=== PATIENT | female | born 1990 | race Caucasian/White ===

== ENCOUNTER 2020-04-21 16:29 | Outpatient (REF) | payer BC, SELFPAY | END 2020-04-21 16:30 | disposition home or self-care (01) | LOC: HO.LAB 16:29 | PROVIDERS: Visit Provider Internal Medicine | DX: Z20.828 Contact with and (suspected) exposure to other viral communicable diseases (principal) | CPT/HCPCS: C9803; U0003 ==

== ENCOUNTER 2021-09-26 18:10 | Emergency (ER) | payer BC, SELFPAY ==
--- NOTE | ~2021-09-26 | XR_ITS ---
EXAMINATION: XR CHEST CLINICAL INFORMATION: Shortness of breath COMPARISON: None TECHNIQUE: 2 views of the chest were obtained. FINDINGS: No significant abnormality is noted involving the heart, lungs, mediastinum, bony thorax or soft tissues. XR/XR chest 2V IMPRESSION: Unremarkable examination.
--- NOTE | ~2021-09-26 | CT_ITS ---
EXAMINATION: CT ANGIOGRAM OF THE CHEST WITH AND WITHOUT CONTRAST (CT PULMONARY ANGIOGRAM FOR PE) CLINICAL INFORMATION: Reason for Exam SOB, chest pain, elevated dimer COMPARISON: None TECHNIQUE: Prior to contrast administration, noncontrast localization images were obtained. Subsequently, multidetector volumetric imaging was performed from the thoracic inlet to below the diaphragms following the administration of 65 mL Omnipaque 350 intravenous contrast. No contrast reaction reported Sagittal, coronal, and MIP oblique sagittal reformatted images were obtained on the CT workstation, uploaded to PACS, and reviewed. This CT examination was performed using dose optimization techniques as appropriate, variously including the following: *Automated exposure control *Adjustment of mA and/or kV according to patient size (this includes techniques or standardized protocols for targeted exams where dose is matched to indication/reason for exam; i.e. extremities or head) *Use of iterative reconstruction technique Total exam dose-length product 314 mGy-cm FINDINGS: QUALITY OF STUDY/CONTRAST BOLUS: Satisfactory. PULMONARY ARTERIES: No central or segmental pulmonary emboli. THORACIC AORTA: No aneurysm or dissection. LUNG: No focal consolidation, nodules or masses. The central airways are patent. PLEURA: No pleural effusion or pneumothorax. MEDIASTINUM: Normal heart size. No pericardial effusion. No hilar or mediastinal lymphadenopathy. No evidence of septal bowing or right heart strain. CHEST WALL/AXILLA: No axillary or internal mammary lymphadenopathy. OSSEOUS STRUCTURES: No acute or suspicious osseous abnormality. UPPER ABDOMEN: Unremarkable. No reflux of contrast into the hepatic veins to suggest elevated right heart pressures. CT/CT angio chest PE protocol IMPRESSION: No pulmonary embolism or other acute intrathoracic abnormality. VTE: negative
[2021-09-26 18:17] VITALS: BP 125/86; PULSE 86; RESP 18; TEMP 36.6; O2SAT 98; BMI 36.6
--- NOTE | 2021-09-26 18:17 | ECG_ITS ---
Test Reason : chest pain Blood Pressure : / mmHG Vent. Rate : 085 BPM Atrial Rate : 085 BPM P-R Int : 124 ms QRS Dur : 084 ms QT Int : 346 ms P-R-T Axes : 032 044 026 degrees QTc Int : 411 ms Normal sinus rhythm with sinus arrhythmia Normal ECG No previous ECGs available Referred By: Generic ED Physician Electronically Signed By:RUDY VALERA
[2021-09-26 18:37] LABS: MANUAL DIFF FLAG NO
[2021-09-26 18:41] LABS: Basophils Percent Auto 0.7 % (0-2); Eosinophils Absolute Auto 0.2 X10*3/uL (0.0-0.4); Eosinophils Percent Auto 3.2 % (0-4); Hematocrit 40.3 % (37.0-47.0); Hemoglobin 13.4 g/dl (12.0-16.0); Imm Gran Abs Auto 0.01 X10*3/uL (0.00-0.03); Imm Gran Pct Auto 0.2 % (0.0-0.4); Lymphocytes Absolute Auto 2.1 X10*3/uL (1.2-4.9); Lymphocytes Percent Auto 35.4 % (20-40); Mean Corpuscular HGB Conc 33.3 g/dl (31.0-35.0); Mean Corpuscular Hemoglobin 28.7 pg (27.0-33.0); Mean Corpuscular Volume 86.3 fL (80.0-98.0); Mean Platelet Volume 10.7 fL (9.4-12.3); Monocytes Absolute Auto 0.6 X10*3/uL (0.1-1.2); Monocytes Percent Auto 9.3 % (2-11); Neutrophils Percent Auto 51.2 % (45-73); Platelet Count 281 X10*3/uL (160-400); Red Blood Count 4.67 X10*6/uL (4.20-5.50); Red Cell Distribution Width 13.5 % (11.0-16.0); White Blood Count 5.9 X10*3/uL (4.8-10.8)
[2021-09-26 18:53] LABS: Alanine Aminotransferase 16 U/L (0-31); Albumin Level 4.3 g/dL (3.5-5.0); Alkaline Phosphatase 69 U/L (39-117); Anion Gap 13 (12-20); Aspartate Amino Transferase 18 U/L (5-31); Bilirubin Total 0.4 mg/dL (0.0-1.0); Blood Urea Nitrogen 8 mg/dL (9-16); COVID-19 Test Negative (Negative); Calcium 9.2 mg/dL (8.4-10.2); Carbon Dioxide 23 mmol/L (22-29); Chloride 107 mmol/L (96-108); Creatinine Clr Calc Pharmacy 130.1; Estimated Glomerular Filt Rate > 60; Glucose Random 104 mg/dL (60-115); IDNOW Serial# 16C4AD1C; Influenza A Negative (Negative); Influenza B2 Negative (Negative); Potassium 4.1 mmol/L (3.3-5.1); Sodium 139 mmol/L (135-145); Total Protein 7.2 g/dL (6.5-8.0)
[2021-09-26 18:58] LABS: Troponin-I High Sensitivity < 3.5 ng/L (<3.5-17.0)
--- NOTE | 2021-09-26 19:34 | ED_ITS ---
HPI - Chest Pain General Chief Complaint: Chest Pain Stated Complaint: SOB/chest pains/heart palpitaions Time Seen by Provider: 09/26/21 19:32 Source: patient Mode of arrival: ambulatory Limitations: no limitations History of Present Illness HPI narrative: Patient is a 31 year old female presenting to the emergency department today with intermittent chest pain, shortness of breath, and dizziness. Patient states that since Saturday, 3 days ago, she has had intermittent chest pain, shortness of breath, and dizziness. Patient states that her chest pain is worse when she takes a deep breath and is primarily on the right side but at times, feels like it settles in the center of her chest. Patient denies any lightheadedness, abdominal pain, nausea, vomiting, fever, chills, blurry vision, double vision, loss of vision, back pain, night sweats, pain with urination, increased urinary frequency, increased urinary urgency, blood in her urine or stool, syncope or a near syncopal episode, recent trauma or falls, bowel incontinence, bladder incontinence, bowel retention, bladder retention, or any other complaints at this time. MD complaint: chest pain Onset (ago): day(s) (4) Timing of current episode: episodic Prior episodes: Yes Pain location: right chest Pain radiation: none Severity: mild Pain scale (0-10): 1 Quality: dull Relieving factors: nothing Exacerbating factors: inspiration Treatment prior to arrival: none Related Data On Oral Contraceptives: No Allergies Allergy/AdvReac Type Severity Reaction Status Date / Time Sulfa (Sulfonamide Allergy Intermediate HIVES Verified 09/26/21 18:16 Antibiotics) [SULFA (SULFONAMIDE ANTIBIOTICS)] Review of Systems Constitutional: Constitutional: Reports no additional constitutional complaints, Denies chills, Denies fever(s) and Denies night sweats Eyes: Eyes: Reports no additional eye complaints, Denies blurry vision, Denies change in vision, Denies diplopia, Denies eye discharge, Denies loss of vision and Denies eye pain ENT: Reports dizziness (intermittent) Cardiovascular: Cardiovascular: Reports no additional cardiovascular complaints, Reports chest pain (right sided, intermittent, worse with inspirat ion), Denies lightheadedness, Denies Loss of Consciousness and Reports dyspnea (intermittent) Respiratory: Respiratory: Reports no additional respiratory complaints and Reports dyspnea (intermittent) Gastrointestinal: Gastrointestinal: Reports no additional gastrointestinal complaints, Denies abdominal pain, Denies melena, Denies hematochezia, Denies change in bowel habits and Denies change in stool character Genitourinary: Genitourinary: Denies hematuria, Denies urinary frequency, Denies dysuria, Denies urinary incontinence, Denies urinary hesitancy and Denies urinary urgency Musculoskeletal: Musculoskeletal: Reports no additional musculoskeletal complaints, Denies numbness and Denies tingling Neurologic: Reports dizziness (intermittent), Denies loss of vision, Denies numbness and Denies tingling Psychiatric: Psychiatric: Reports no additional psychiatric complaints Endocrine: Endocrine: Reports no additional endocrine complaints Hematologic/Lymphatic: Hematologic/Lymphatic: Reports no additional hematologic/lymphatic complaints Allergic/Immunologic: Allergic/Immunologic: Reports no additional allergic/immunologic complaints PMFSH Past Medical History Attestation statement: The following information was validated with the patient. Source: old records reviewed Social History Social History Advance Directives: No Advance Directives Information Provided: No Physical Exam Vital Signs: Vital Signs: Last Vital Signs Temp 99.5 F 09/26/21 19:38 Pulse 80 09/26/21 19:38 Resp 17 09/26/21 19:38 BP 124/67 09/26/21 19:38 Pulse Ox 100 09/26/21 19:38 BMI result Body Mass Index 36.6 Const: General: cooperative, no acute distress, alert and awake Nutritional Appearance: well nourished Orientation/consciousness: patient oriented x3 Limitations: no limitations HEENT: Head: Yes normal to inspection and Yes atraumatic Ears: hearing grossly normal bilaterally and external ears normal General nose exam: Normal external nose present, no nasal discharge noted and no epistaxis Face and sinus: Yes normal facial exam, No abrasion and No laceration Mouth: Normal oral and palatal mucosa present, no drooling and no muffled voice Eyes: General: appearance normal, both eyes and all related structures Periorbital: periorbital findings normal Eyelids: Yes eyelids normal Conjunctivae: conjunctivae normal Pupils: Equal, round and reactive pupils present EOM: EOMs intact bilaterally Neck: Neck: Yes normal visual inspection, Yes full ROM and Yes no lymphadenopathy Chest: Chest palpation & inspection: normal inspection of the chest Resp: Effort & Inspection: normal respiratory effort and able to speak in complete sentences Auscultation: clear to auscultation bilaterally Cardio: Rate: regular rate Rhythm: regular rhythm GI: Inspection: Yes normal to inspection Neuro: General: patient oriented x3 and moves all extremities Cranial nerves: Yes Equal, round and reactive pupils present Cognition (Neuro): normal cognition Motor exam (neuro): 5/5 motor strength present throughout Sensory Exam: Normal double simultaneous stimulation for sensation Coordination: [id number] test normal Extrem: General: Yes normal to inspection, Yes full ROM and Yes capillary refill normal Psych: Appearance: grossly normal Mental Status: mental status grossly normal Affect: normal affect Attitude: cooperative Thought process: Normal thought process present Thought content: Normal thought content present Insight: Good insight present (Psych) MDM - Chest Pain MDM Narrative Medical decision making narrative: Patient is a 31 year old female presenting to the emergency department today with intermittent chest pain, shortness of breath, and dizziness. Patient's physical exam was unremarkable. Patient's blood work showed a slightly elevated d dimer and a beta HCG of 20 but was otherwise unremarkable. Patient's urine showed no acute process but was positive for . Patient's EKG was unremarkable. Patient's chest x-ray showed no acute process. Patient's CT PE of the chest showed no acute process / PE. Upon reevaluation, the patient states that she is not on contraceptives and was last sexually active 2 weeks ago. Patient states that her last period was 4 weeks ago and is not yet late for her. I explained my physical exam findings as well as all test results to the patient. I answered all questions asked by the patient. Patient received IV Toradol which she stated helped her symptoms significantly. I stressed the importance of the patient taking her medication as prescribed. I stressed the importance of the patient following up with her primary care provider and her OBGYN for continued beta HCG monitoring. I stressed the importance of the patient returning to the emergency department immediately if her symptoms were to worsen or if she were to develop any dizziness, shortness of breath, difficulty breathing, chest pain, blurry vision, loss of vision, nausea, vomiting, abdominal pain, fever, chills, back pain, or any other complaints. Patient verbalized agreement and understanding with this treatment plan and discharge. Differential Diagnosis Differential diagnosis: Likely atypical chest pain and costochondritis Differential diagnosis: pulmonary embolism Medical Records Data Attestation: I reviewed the patient's medical records. Lab Data Attestation: I reviewed the patient's lab results. Result diagrams: 09/26/21 18:33 09/26/21 18:33 Labs: Lab Results 09/26/21 09/26/21 09/26/21 Range/Units 18:33 18:33 18:33 WBC 5.9 (4.8-10.8) X10*3/uL RBC 4.67 (4.20-5.50) X10*6/uL Hgb 13.4 (12.0-16.0) g/dl Hct 40.3 (37.0-47.0) % MCV 86.3 (80.0-98.0) fL MCH 28.7 (27.0-33.0) pg MCHC 33.3 (31.0-35.0) g/dl RDW 13.5 (11.0-16.0) % Plt Count 281 (160-400) X10*3/uL MPV 10.7 (9.4-12.3) fL Immature Gran % (Auto) 0.2 (0.0-0.4) % Neut % (Auto) 51.2 (45-73) % Lymph % (Auto) 35.4 (20-40) % [place] % (Auto) 9.3 (2-11) % Eos % (Auto) 3.2 (0-4) % Baso % (Auto) 0.7 (0-2) % Lymph # (Auto) 2.1 (1.2-4.9) X10*3/uL [place] # (Auto) 0.6 (0.1-1.2) X10*3/uL Eos # (Auto) 0.2 (0.0-0.4) X10*3/uL Baso # (Auto) 0.0 (0.0-0.2) X10*3/uL Abs Immat Gran (auto) 0.01 (0.00-0.03) X10*3/uL Absolute Neuts (auto) 3.0 (2.0-8.3) x10*3/uL Absolute Nucleated RBC 0.000 (0.0-0.012) X10*3/uL Nucleated RBC % (auto) 0.0 (0.0-0.2) /100WBC D-Dimer High Sensitivty NG/ML Sodium 139 (135-145) mmol/L Potassium 4.1 (3.3-5.1) mmol/L Chloride 107 (96-108) mmol/L Carbon Dioxide 23 (22-29) mmol/L Anion Gap 13 (12-20) BUN 8 L (9-16) mg/dL Creatinine 0.65 (0.5-1.4) mg/dL Estim Creat Clear Calc 130.1 Estimated GFR > 60 Random Glucose 104 (60-115) mg/dL Calcium 9.2 (8.4-10.2) mg/dL Total Bilirubin 0.4 (0.0-1.0) mg/dL AST 18 (5-31) U/L ALT 16 (0-31) U/L Alkaline Phosphatase 69 (39-117) U/L Troponin I High Sens < 3.5 (<3.5-17.0) ng/L Total Protein 7.2 (6.5-8.0) g/dL Albumin 4.3 (3.5-5.0) g/dL Beta HCG, Quant 20 mIU/mL Urine Color Urine Appearance Urine pH (5.0-8.0) Ur Specific [place] (1.005-1.025) Urine Protein (NEG-TRACE) MG/DL Urine Glucose (UA) (NEG) MG/DL Urine Ketones (NEG) MG/DL Urine Blood (NEG) Urine Nitrite (NEG) Ur Leukocyte Esterase (NEG) Urine Test (NEGATIVE) COVID-19 (BRUCE) (Negative) COVID-19 Clin Com Influenza Type A (JENNI) (Negative) Influenza Type B (JENNI) (Negative) Influenza A & B Note 09/26/21 09/26/21 09/26/21 Range/Units 18:33 18:33 19:45 WBC (4.8-10.8) X10*3/uL RBC (4.20-5.50) X10*6/uL Hgb (12.0-16.0) g/dl Hct (37.0-47.0) % MCV (80.0-98.0) fL MCH (27.0-33.0) pg MCHC (31.0-35.0) g/dl RDW (11.0-16.0) % Plt Count (160-400) X10*3/uL MPV (9.4-12.3) fL Immature Gran % (Auto) (0.0-0.4) % Neut % (Auto) (45-73) % Lymph % (Auto) (20-40) % [place] % (Auto) (2-11) % Eos % (Auto) (0-4) % Baso % (Auto) (0-2) % Lymph # (Auto) (1.2-4.9) X10*3/uL [place] # (Auto) (0.1-1.2) X10*3/uL Eos # (Auto) (0.0-0.4) X10*3/uL Baso # (Auto) (0.0-0.2) X10*3/uL Abs Immat Gran (auto) (0.00-0.03) X10*3/uL Absolute Neuts (auto) (2.0-8.3) x10*3/uL Absolute Nucleated RBC (0.0-0.012) X10*3/uL Nucleated RBC % (auto) (0.0-0.2) /100WBC D-Dimer High Sensitivty 242 NG/ML Sodium (135-145) mmol/L Potassium (3.3-5.1) mmol/L Chloride (96-108) mmol/L Carbon Dioxide (22-29) mmol/L Anion Gap (12-20) BUN (9-16) mg/dL Creatinine (0.5-1.4) mg/dL Estim Creat Clear Calc Estimated GFR Random Glucose (60-115) mg/dL Calcium (8.4-10.2) mg/dL Total Bilirubin (0.0-1.0) mg/dL AST (5-31) U/L ALT (0-31) U/L Alkaline Phosphatase (39-117) U/L Troponin I High Sens (<3.5-17.0) ng/L Total Protein (6.5-8.0) g/dL Albumin (3.5-5.0) g/dL Beta HCG, Quant mIU/mL Urine Color Urine Appearance Urine pH (5.0-8.0) Ur Specific [place] (1.005-1.025) Urine Protein (NEG-TRACE) MG/DL Urine Glucose (UA) (NEG) MG/DL Urine Ketones (NEG) MG/DL Urine Blood (NEG) Urine Nitrite (NEG) Ur Leukocyte Esterase (NEG) Urine Test (NEGATIVE) COVID-19 (BRUCE) Negative (Negative) COVID-19 Clin Com See Note Influenza Type A (JENNI) Negative (Negative) Influenza Type B (JENNI) Negative (Negative) Influenza A & B Note See Note 09/26/21 09/26/21 Range/Units 20:00 20:00 WBC (4.8-10.8) X10*3/uL RBC (4.20-5.50) X10*6/uL Hgb (12.0-16.0) g/dl Hct (37.0-47.0) % MCV (80.0-98.0) fL MCH (27.0-33.0) pg MCHC (31.0-35.0) g/dl RDW (11.0-16.0) % Plt Count (160-400) X10*3/uL MPV (9.4-12.3) fL Immature Gran % (Auto) (0.0-0.4) % Neut % (Auto) (45-73) % Lymph % (Auto) (20-40) % [place] % (Auto) (2-11) % Eos % (Auto) (0-4) % Baso % (Auto) (0-2) % Lymph # (Auto) (1.2-4.9) X10*3/uL [place] # (Auto) (0.1-1.2) X10*3/uL Eos # (Auto) (0.0-0.4) X10*3/uL Baso # (Auto) (0.0-0.2) X10*3/uL Abs Immat Gran (auto) (0.00-0.03) X10*3/uL Absolute Neuts (auto) (2.0-8.3) x10*3/uL Absolute Nucleated RBC (0.0-0.012) X10*3/uL Nucleated RBC % (auto) (0.0-0.2) /100WBC D-Dimer High Sensitivty NG/ML Sodium (135-145) mmol/L Potassium (3.3-5.1) mmol/L Chloride (96-108) mmol/L Carbon Dioxide (22-29) mmol/L Anion Gap (12-20) BUN (9-16) mg/dL Creatinine (0.5-1.4) mg/dL Estim Creat Clear Calc Estimated GFR Random Glucose (60-115) mg/dL Calcium (8.4-10.2) mg/dL Total Bilirubin (0.0-1.0) mg/dL AST (5-31) U/L ALT (0-31) U/L Alkaline Phosphatase (39-117) U/L Troponin I High Sens (<3.5-17.0) ng/L Total Protein (6.5-8.0) g/dL Albumin (3.5-5.0) g/dL Beta HCG, Quant mIU/mL Urine Color YELLOW Urine Appearance HAZY Urine pH 7.0 (5.0-8.0) Ur Specific [place] 1.015 (1.005-1.025) Urine Protein NEG (NEG-TRACE) MG/DL Urine Glucose (UA) NEG (NEG) MG/DL Urine Ketones NEG (NEG) MG/DL Urine Blood NEG (NEG) Urine Nitrite NEG (NEG) Ur Leukocyte Esterase NEG (NEG) Urine Test POSITIVE H (NEGATIVE) COVID-19 (BRUCE) (Negative) COVID-19 Clin Com Influenza Type A (JENNI) (Negative) Influenza Type B (JENNI) (Negative) Influenza A & B Note Imaging Data Chest x-ray: Attestation: I personally reviewed and interpreted this imaging study as follows: My impression: No acute process. Radiologist's impression: EXAMINATION: XR CHEST CLINICAL INFORMATION: Shortness of breath COMPARISON: None TECHNIQUE: 2 views of the chest were obtained. FINDINGS: No significant abnormality is noted involving the heart, lungs, mediastinum, bony thorax or soft tissues. XR/XR chest 2V IMPRESSION: Unremarkable examination. Dictated By: Chester Webster MD Signed By: Electronically signed by Chester Webster MD 09/26/211952 CT scan - chest: Attestation: I personally reviewed and interpreted this imaging study as follows: My impression: No acute process. Radiologist's impression: EXAMINATION: CT ANGIOGRAM OF THE CHEST WITH AND WITHOUT CONTRAST (CT PULMONARY ANGIOGRAM FOR PE) CLINICAL INFORMATION: Reason for Exam SOB, chest pain, elevated dimer COMPARISON: None? TECHNIQUE: Prior to contrast administration, noncontrast localization images were obtained. ? Subsequently, multidetector volumetric imaging was performed from the thoracic inlet to below the diaphragms following the administration of 65 mL Omnipaque 350 intravenous contrast. No contrast reaction reported Sagittal, coronal, and MIP oblique sagittal reformatted images were obtained on the CT workstation, uploaded to PACS, and reviewed. This CT examination was performed using dose optimization techniques as appropriate, variously including the following: *Automated exposure control *Adjustment of mA and/or kV according to patient size (this includes techniques or standardized protocols for targeted exams where dose is matched to indication/reason for exam; i.e. extremities or head) *Use of iterative reconstruction technique Total exam dose-length product 314 mGy-cm FINDINGS: QUALITY OF STUDY/CONTRAST BOLUS: Satisfactory. PULMONARY ARTERIES: No central or segmental pulmonary emboli.? THORACIC AORTA: No aneurysm or dissection. LUNG: No focal consolidation, nodules or masses. The central airways are patent. PLEURA: No pleural effusion or pneumothorax. MEDIASTINUM: Normal heart size.? No pericardial effusion.? No hilar or mediastinal lymphadenopathy.? No evidence of septal bowing or right heart strain. CHEST WALL/AXILLA: No axillary or internal mammary lymphadenopathy. OSSEOUS STRUCTURES: No acute or suspicious osseous abnormality.? UPPER ABDOMEN: Unremarkable.? No reflux of contrast into the hepatic veins to suggest elevated right heart pressures. CT/CT angio chest PE protocol IMPRESSION: No pulmonary embolism or other acute intrathoracic abnormality. ? VTE: negative Dictated By: Darwin Vilchis MD Signed By: Electronically signed by Darwin Vilchis MD 09/26/21 [id number] ECG Data ECG #1: Attestation: I personally reviewed and interpreted this ECG as follows: ECG interpretation date: 09/26/21 ECG interpretation time: 18:13 Prior ECG tracings: not available for review Interpretation: Vent. Rate: 085 BPM ? ? Atrial Rate: 085 BPM P-R Int: 124 ms? QRS Dur: 084 ms QT Int: 346 ms ? ? ? P-R-T Axes: 032 044 026 degrees QTc Int: 411 ms ? Normal sinus rhythm with sinus arrhythmia Normal ECG No previous ECGs available DD/ 1813 Discharge Plan Discharge Clinical Impression: Atypical chest pain, Elevated serum hCG Patient Disposition: Home, Self-Care Instructions: Chest Pain (DC) Additional Instructions: Follow up with your primary care provider and OBGYN. Have your beta HCG levels repeated to confirm presence of . Return to the emergency department immediately if your symptoms worsen or if you develop any dizziness, shortness of breath, difficulty breathing, chest pain, blurry vision, loss of vision, nausea, vomiting, abdominal pain, fever, chills, back pain, or any other complaints. Referrals: [facility] Family Medicine [Provider Group] [facility] Primary CareAmie [Provider Group] [facility] Primary CareLena [Provider Group] Jean-Pierre Pierre MD [Physician] - Stand Alone Forms: Work/School Release Interventions: ED Discharge Assessment Last Done: 09/26/21 21:57 Discharge Date/Time: 09/26/21 21:59 Print Language: [place]
[2021-09-26 19:38] VITALS: BP 124/67; PULSE 80; RESP 17; TEMP 37.5; O2SAT 100
[2021-09-26 19:57] LABS: HCG Quantitative 20 mIU/mL
[2021-09-26 20:03] LABS: D Dimer High Sensitivity 242 NG/ML
[2021-09-26 20:06] LABS: Appearance Urine HAZY; Color Urine YELLOW; Glucose Urine UA NEG (NEG); Leukocyte Esterase Urine NEG (NEG); Nitrite Urine NEG (NEG); Specific Gravity - Urine 1.015 (1.005-1.025); Urine Blood NEG (NEG); Urine Ketones NEG (NEG); Urine Protein NEG (NEG-TRACE)
[2021-09-26] MEDS: Ketorolac Tromethamine 30 MG/ML VIAL IVPUSH (20:29)
[2021-09-26 20:54] LABS: UPreg QC Valid YES
[2021-09-26 20:55] LABS: Urine Pregnancy POSITIVE (NEGATIVE)
[2021-09-26] MEDS: iohexoL 350 MG/ML 100 ML INFUS..BTL IV (20:58)
== END 2021-09-26 21:59 | disposition home or self-care (01) ==
PROVIDERS: Physician Assistant Medical; Emergency Provider Emergency Medicine
DX: R07.89 Other chest pain (principal); R06.02 Shortness of breath; Z20.822 Contact with and (suspected) exposure to COVID-19; Z33.1 Pregnant state, incidental
CPT/HCPCS: 36415; 71046; 71275; 80053; 81003; 81025; 84484; 84702; 85025; 85379; 87502; 87635; 93005; 96374; 99284; J1885; Q9967

== ENCOUNTER 2022-02-18 14:53 | Emergency (ER) | payer BC, OTHER, SELFPAY ==
[2022-02-18 16:01] VITALS: BP 117/72; PULSE 94; RESP 18; TEMP 36.6; O2SAT 97; BMI 40.2
--- NOTE | 2022-02-18 16:51 | ED_ITS ---
HPI - General Adult General Chief complaint: General Medical Stated complaint: 24 wk , got kicked in stomach Time Seen by Provider: 02/18/22 16:32 Source: patient Mode of arrival: ambulatory Limitations: no limitations History of Present Illness HPI narrative: 31-year-old female G2 P 1 about 24 weeks patient has her care at [facility], patient was kicked with a soccer ball in the stomach about 3 hours ago patient has been feeling abdominal pain, nausea, feels the baby is moving more than usual, declined any vaginal discharge or bleeding, no pelvic contractions, no back pain. Patient was seen at urgent care and was sent to the hospital for further evaluation. Related Data Allergies Allergy/AdvReac Type Severity Reaction Status Date / Time Sulfa (Sulfonamide Allergy Intermediate HIVES Verified 09/26/21 18:16 Antibiotics) [SULFA (SULFONAMIDE ANTIBIOTICS)] Review of Systems Review of Systems: All other systems are reviewed and are negative Constitutional: Reports as per HPI and Reports no additional constitutional complaints Eyes: Reports as per HPI and Reports no additional eye complaints Reports system reviewed and no additional complaints, except as documented Cardiovascular: Reports as per HPI and Reports no additional cardiovascular complaints Respiratory: Reports as per HPI and Reports no additional respiratory complaints Gastrointestinal: Reports as per HPI and Reports no additional gastrointestinal complaints Genitourinary: Reports no additional female genitourinary complaints Musculoskeletal: Reports no additional musculoskeletal complaints Skin/Breast: Reports system reviewed and no additional complaints, except as docu Psychiatric: Reports no additional psychiatric complaints Endocrine: Reports no additional endocrine complaints Hematologic/Lymphatic: Reports no additional hematologic/lymphatic complaints Allergic/Immunologic: Reports no additional allergic/immunologic complaints Reports system reviewed and no additional complaints, except as documented and Reports Abnormal speech present [facility] Social History Social History Advance Directives: No Advance Directives Information Provided: No Physical Exam ED Vital Signs: Vital Signs - 24 hr 02/18/22 16:01 Temperature 97.8 F Pulse Rate 94 Respiratory Rate 18 Blood Pressure 117/72 Pulse Oximetry 97 Oxygen Delivery Method Room Air BMI result Body Mass Index 40.2 Vital signs have been reviewed as appeared to be correct. Blood pressure normal. Heart rate normal. Respiration rate normal. Temperature normal. Oxygen saturation normal. Appearance: Alert. Oriented X3. No acute distress. Head: Normal external exam. Normocephalic. Atraumatic. No Hinds signs noted. No raccoon eyes noted Eyes: PERRLA. EOMI. Conjunctiva and sclera normal. Eyelids normal. ENT: TM's Normal. Pharynx normal. Uvula midline. Moist mucous membranes. No trismus noted. No drooling noted. No muffled voice noted. Neck: Normal inspection. Neck supple. FROM. No adenopathy. Thyroid Normal. No meningeal signs. No neck mass noted. CVS: Normal heart rate and rhythm. Heart sound normal. No murmurs noted. Pulses normal throughout. Respiratory: No respiratory distress. Painless inspiration. Breath sounds normal. No wheezes/rales/rhonchi noted. Chest nontender. No accessory muscle usage noted or decreased air movement noted. Abdomen: Soft, mild lower abdominal tenderness, no rebound tenderness, no guarding.. Bowel sounds normal in all 4 quadrants. No distention noted. No organomegaly noted. No visible injury noted. Back: No CVA tenderness. Full range of motion noted. Skin: Skin warm and dry. Normal skin color. Normal skin turgor. No rashes/lesions/lacerations noted. Extremities: No lower extremity edema. Extremities exhibit normal range of motion. Extremities nontender. Neuro: Oriented X 3. Cranial nerve exam: II-XII are grossly intact No motor deficit. No sensory deficit. Reflexes normal. Course Course Course Narrative: 31-year-old woman with 24 weeks noncomplicated care status post abdominal trauma was kicked in the abdomen by a soccer ball with her relatively small distance, patient hemodynamically stable, complaining of mild lower abdominal pain, the case was discussed with [facility] ER W-2, patient was accepted for maternal monitoring by Dr. Renita Brooke, patient is declining taking an ambulance for transfer because her private insurance and patient is concern of taking out of pocket the expense of the ambulance transportation, patient hemodynamically stable and familiar with the road to [facility], patient at the moment do not show signs of hemodynamic instability or risk of sudden bleeding, I think would be safe for the patient to to [facility]. heart rate at discharge was 148, patient vital signs stable, no vaginal bleeding. Discharge Plan Discharge Clinical Impression: Trauma during Patient Disposition: [facility] Transfer Details: W-2 at [facility] Instructions: Trauma During (ED)
[2022-02-18 17:38] LABS: COVID-19 Test Negative (Negative); IDNOW Serial# 16C4AD1C
== END 2022-02-18 18:23 | disposition short-term general hospital (02) ==
PROVIDERS: Emergency Provider Emergency Medicine
DX: O9A.212 Injury, poisoning and certain other consequences of external causes complicating pregnancy, second trimester (principal); S30.92XA Unspecified superficial injury of abdominal wall, initial encounter; Z3A.24 24 weeks gestation of pregnancy; W21.02XA Struck by soccer ball, initial encounter; Y93.9 Activity, unspecified; Y92.9 Unspecified place or not applicable; Y99.9 Unspecified external cause status; Z20.822 Contact with and (suspected) exposure to COVID-19
CPT/HCPCS: 87635; 99285

== ENCOUNTER 2022-05-13 09:26 | Emergency (ER) | payer BC, MEDICAID, SELFPAY ==
--- NOTE | 2022-05-13 | ECG_ITS ---
Test Reason : SOB Blood Pressure : / mmHG Vent. Rate : 133 BPM Atrial Rate : 133 BPM P-R Int : 140 ms QRS Dur : 072 ms QT Int : 284 ms P-R-T Axes : 038 043 033 degrees QTc Int : 422 ms Sinus tachycardia Otherwise normal ECG When compared with ECG of 26-SEP-2021 18:13, Vent. rate has increased BY 48 BPM Referred By: Generic ED Physician Electronically Signed By:RADHA WILDER MD
--- NOTE | ~2022-05-13 | XR_ITS ---
EXAMINATION: XR CHEST CLINICAL INFORMATION: Shortness of breath COMPARISON: September 26, 2021 TECHNIQUE: AP portable view of the chest was obtained. FINDINGS: There are small lung volumes. There is no evidence of acute parenchymal disease, pneumothorax, or pleural effusion. Heart normal size. No evidence of pulmonary edema. XR/XR chest 1V IMPRESSION: No acute disease.
--- NOTE | ~2022-05-13 | CT_ITS ---
EXAMINATION: CT ANGIOGRAM OF THE CHEST WITH AND WITHOUT CONTRAST (CT PULMONARY ANGIOGRAM FOR PE) CLINICAL INFORMATION: Reason for Exam sob rule out PE COMPARISON: September 26, 2021 TECHNIQUE: Prior to contrast administration, noncontrast localization images were obtained. Subsequently, multidetector volumetric imaging was performed from the thoracic inlet to below the diaphragms following the administration of 65 mL Omnipaque 350 intravenous contrast. No contrast reaction reported Sagittal, coronal, and MIP oblique sagittal reformatted images were obtained on the CT workstation, uploaded to PACS, and reviewed. This CT examination was performed using dose optimization techniques as appropriate, variously including the following: *Automated exposure control *Adjustment of mA and/or kV according to patient size (this includes techniques or standardized protocols for targeted exams where dose is matched to indication/reason for exam; i.e. extremities or head) *Use of iterative reconstruction technique Total exam dose-length product 393 mGy-cm FINDINGS: QUALITY OF STUDY/CONTRAST BOLUS: Satisfactory. PULMONARY ARTERIES: No central or segmental pulmonary emboli. With breathing artifact a few regions where bronchograms superimposed over the arterial branches giving appearance of possible filling defects however this is artifactual. THORACIC AORTA: No aneurysm or dissection. LUNG: There are small lung volumes with regions of groundglass opacity bilaterally likely related to atelectasis. No confluent disease is seen. Central airways are patent. No bronchial wall thickening or bronchiectasis. PLEURA: No pleural effusion or pneumothorax. MEDIASTINUM: Normal heart size. No pericardial effusion. No mediastinal lymphadenopathy. There is some mild prominence of right hilar soft tissue which may be related to minimally enlarged lymph node. No evidence of septal bowing or right heart strain. CORONARY ARTERY CALCIFICATION: None visualized on this study. CHEST WALL/AXILLA: No axillary or internal mammary lymphadenopathy. OSSEOUS STRUCTURES: No acute or suspicious osseous abnormality. UPPER ABDOMEN: Unremarkable. No reflux of contrast into the hepatic veins to suggest elevated right heart pressures. CT/CT angio chest PE protocol IMPRESSION: No evidence of acute pulmonary artery embolus. No evidence of thoracic aortic aneurysm or dissection. No significant parenchymal disease appreciated. VTE: negative
[2022-05-13 09:29] VITALS: BMI 43.5
[2022-05-13 09:45] VITALS: BP 120/70; PULSE 138; RESP 25; TEMP 36.5; O2SAT 96
--- NOTE | 2022-05-13 09:58 | ED.URI ---
HPI - URI/Sore Throat General Chief Complaint: Upper Respiratory Symptoms Stated Complaint: upper respiratory infection. fever, Time Seen by Provider: 05/13/22 09:37 Source: patient Mode of arrival: ambulatory Limitations: no limitations History of Present Illness HPI Narrative: 31 Year old female (36 wk 3 days) with PMH of asthma who presents to the ED with complaints of fever, body aches, shortness of breath with exertion, and chest pain with productive cough. She reports she was treated for an upper respiratory infection with antibiotics a few weeks ago, however; she has had no relief in symptoms. She reports her last fever was last night, > 101 per pt, which she managed with tylenol with good effect. She states she is coughing up large amounts of green thick sputum. She states she is prescribed albuterol and symbicort for her asthma but has not been able to use the steroid inhaler due to . She reports poor PO intake and decreased urination. She denies any abdominal pain or cramping, vaginal bleeding or discharge, or decrease in baby's movements. She denies nausea, vomiting, diarrhea, constipation, headache, or vision changes. MD elicited complaint: fever and cough Pertinent past history: asthma Onset (ago): week(s) Consistency: constant Description of mucous: yellow and green Able to tolerate fluids by mouth: Yes Exacerbating factors: exertion and deep breaths Relieving factors: nothing Associated symptoms: denies other symptoms Treatments prior to arrival: none Related Data Allergies Allergy/AdvReac Type Severity Reaction Status Date / Time Sulfa (Sulfonamide Allergy Intermediate HIVES Verified 09/26/21 18:16 Antibiotics) [SULFA (SULFONAMIDE ANTIBIOTICS)] Review of Systems Review of Systems: In addition to documented HPI above, the additional ROS was obtained: CONSTITUTIONAL: Denies weakness, fatigue, headache, night sweats, or weight loss EYES: Denies vision changes, eye pain, swelling, redness, foreign body, discharge ENT: Hearing normal. Denies sore throat, swallowing difficulty, throat tightness, hoarse voice, congestion, or ear pain CV: Denies epigastric pain. No edema, palpitations, or dyspnea on exertion RESP: Denies dyspnea. Denies smoke exposure GI: Denies abdominal pain. Denies nausea, vomiting, constipation or diarrhea. No hematemesis, melena, or hematochezia. : Denies irregular bleeding or vaginal discharge. Denies dysuria, urinary frequency, urinary incontinence/retention, urgency. Denies flank pain or hematuria MSK: Denies recent trauma, change in gait, myalgias, joint swelling or pain SKIN: Denies no lesions, rashes, or sores NEURO: Denies new numbness, tingling, dizziness, paresthesias or weakness. No loss of consciousness. Denies headache ENDOCRINE: Denies unexpected weight loss. Denies polyuria, polydipsia. No temperature intolerance HEME/ONC: Denies bleeding disorders, easy bruising, or lymphadenopathy PSYCH: Denies anxiety/panic, depression, SI/HI, or social issues. Yes all other systems are reviewed and are negative [facility] Past Medical History Attestation statement: The following information was validated with the patient. Source: old records reviewed Medical History (Updated 05/13/22 @ 15:32 by Thais Banda NP) Asthma Family History Family History (Updated 05/13/22 @ 15:22 by Thais Banda NP) Other Factor V Leiden Social History Social History Smoked in Last 30 Days: No Use of substances other than those prescribed or required for medical reasons: No Advance Directives: No Advance Directives Information Provided: Yes Patient : Yes Physical Exam Vital Signs: Vital Signs: Last Vital Signs Temp 97.7 F 05/13/22 16:06 Pulse 124 H 05/13/22 16:06 Resp 20 05/13/22 16:06 BP 116/63 05/13/22 16:06 Pulse Ox 96 05/13/22 16:06 O2 Del Method 05/13/22 16:06 BMI result Body Mass Index 43.5 Nursing notes and vital signs reviewed. GENERAL APPEARANCE: A&0 x 4, generally well appearing, no acute distress HENMT: Normal to inspection, atraumatic, face symmetrical. Normal external ears, nose, and oropharynx clear. EYE: PERRLA, EOM intact, structures appear normal NECK: Supple without lymphadenopathy. No stiffness or restricted ROM. CHEST: Normal to inspection HEART: Normal rate and regular rhythm, normal S1/S2, no M/R/G LUNGS: Left LS clear, Rt LS with expiratory wheeze in upper lobe. Able to speak in complete sentences. No crackles or rhonchi auscultated ABDOMEN: Soft, nontender, nondistended. Normal bowel sounds noted BACK: No CVAT, no obvious deformity EXTREMITIES: Moving all extremities without difficulty. No cyanosis, clubbing, or edema. Normal capillary refill. NEUROLOGICAL: Alert and oriented, moving all 4 extremities with equal strength. CN not formally tested but appearing grossly intact. Observed to ambulate with normal gait. Cognition normal SKIN: Warm and dry without any lesions, rash, or visible sores PSYCH: Cooperative, normal affect, normal thought process Course Course Course Narrative: 0950: Plan for IV mag, albuterol neb, and prednisone for asthma exacerbation. Blood work including d-dimer, UA, Serology ordered. EKG sinus tach, nonischemic. CXR offered to pt, pt would like to time to consider due to concerns with current . 1015: Spoke with pt regarding CXR to rule out pulmonary infection. Pt in agreement at this time. 1040: Urinalysis negative for signs of infection. Serology negative for flu, RSV, or Covid. WBC > 18, HR >130 and RR >20, cause most likely due to viral infection. Pt does not appear septic at this time. Lactic acid and blood cultures ordered. 1050: LS CTA after neb treatment. Pt continues to be tachypneic and tachycardic. D-dimer elevated at 694. V/Q scan ordered to further rule out PE. Spoke with pt regarding the need to rule out PE, pt states she has a family history of Factor V Leiden with multiple family members with PE or DVT. 1055: Spoke with Dr Ignacio gipson pt with plan to transfer pt to [facility]. VQ to be done here if transport has not arrived before scan. If transport arrives prior to VQ scan pt to be transferred before scan per Dr Pierre's recommendation. HR to be done here in ED 1120: heart rate 154, no emergent concern pt Dr Pierre, plan to continue transfer as soon as transport available. 1200: Spoke to OB attending at [facility] regarding pt. CTA PE recommended instead of V/Q scan to rule out PE. As pt is not having OB symptoms attending believes further workup should be done here at [facility] prior to considering transfer. Plan to contact [facility] at transfer line after CT results. Lactic acid 1.6. 1355: CTA negative for PE, aneurysm, dissection, or parenchymal disease. Call out to [facility] transfer line to speak with OB. 1405: Spoke with OB attending at [facility], no need for transfer via ambulance at this time per OB MD as pt continues to be without OB symptoms. OB recommended fluid bolus to reduce pt's HR and pt present to [facility] after discharge from [facility] for NST and evaluation. 1500: HR reduced from 130s to 120s after 1 L NS bolus. Plan for second 1 L NS bolus. 1600: Spoke with patient with plan to discharge pt from [facility] with plan to present to [facility] directly after discharge with pt in agreement. 1630: Second liter NS given. Pt states she feels confident in plan to be discharged and present to [facility]. Medications Administered Discontinued Medications Generic Name Dose Route Start Last Admin Trade Name Freq PRN Reason Stop Dose Admin Albuterol Sulfate 2.5 mg/ 5 mg 05/13/22 09:54 05/13/22 10:28 Albuterol Sulfate 2.5 mg INHALE 05/13/22 09:55 5 mg ONCE ONE Administration Magnesium Sulfate 2 gm in 50 mls @ 25 mls/hr 05/13/22 09:52 05/13/22 12:24 Magnesium Sulfate/H2o IV 05/13/22 11:51 Infused ONCE ONE Infusion Sodium Chloride 1,000 mls @ 999 mls/hr 05/13/22 14:00 05/13/22 14:52 Ns IV 05/13/22 15:00 Infused .Q1H1M SUZAN Infusion Sodium Chloride 1,000 mls @ 999 mls/hr 05/13/22 15:15 05/13/22 15:11 Ns IV 05/13/22 16:15 999 mls/hr .Q1H1M SUZAN Administration Iohexol 100 ml 05/13/22 12:27 05/13/22 12:27 Iohexol 350 Mg/Ml 100 Ml Infus..Btl IV 05/13/22 12:28 65 ml ONCE ONE Administration Prednisone 40 mg 05/13/22 09:52 05/13/22 10:15 Prednisone 20 Mg Tablet PO 05/13/22 09:53 40 mg ONCE ONE Administration Medical Decision Making Medical Decision Making MDM Narrative: 31 Year old female (36 wk 3 days) with PMH of asthma who presents to the ED with complaints of fever, body aches, shortness of breath with exertion, and chest pain with productive cough. Blood work remarkable to elevated WBC and d-dimer, and low mag level. 2 gm Mag replacment given. EKG sinus tach 133 bpm, no ischemia noted. CXR normal. CTA without PE. Serology negative for influenza, RSV, and COVID-19. Urinalysis negative for infection. 2 L NS given for tachycardia with reduction in HR from 130s to 110s/120s. Pt discharged with plan to present immediately to [facility] for evaluation. Pt in agreement with plan. *Refer to Course for additional information on consultations, diagnostic interpretation, consultations, emergency department stay, conversations with patient and family, shared decision making with patient, and more information on medical decision making* Lab Data MDM Lab Attestation statement: I reviewed the patient's lab results. 05/13/22 10:12 05/13/22 10:12 Labs: Lab Results 05/13/22 05/13/22 05/13/22 Range/Units 09:44 10:12 10:12 WBC 18.7 H (4.8-10.8) X10*3/uL RBC 4.19 L (4.20-5.50) X10*6/uL Hgb 12.1 (12.0-16.0) g/dl Hct 36.6 L (37.0-47.0) % MCV 87.4 (80.0-98.0) fL MCH 28.9 (27.0-33.0) pg MCHC 33.1 (31.0-35.0) g/dl RDW 13.6 (11.0-16.0) % Plt Count 328 (160-400) X10*3/uL MPV 10.9 (9.4-12.3) fL Immature Gran % (Auto) 0.9 H (0.0-0.4) % Neut % (Auto) 86.3 H (45-73) % Lymph % (Auto) 6.1 L (20-40) % [place] % (Auto) 5.2 (2-11) % Eos % (Auto) 1.3 (0-4) % Baso % (Auto) 0.2 (0-2) % Lymph # (Auto) 1.1 L (1.2-4.9) X10*3/uL [place] # (Auto) 1.0 (0.1-1.2) X10*3/uL Eos # (Auto) 0.2 (0.0-0.4) X10*3/uL Baso # (Auto) 0.0 (0.0-0.2) X10*3/uL Abs Immat Gran (auto) 0.16 H (0.00-0.03) X10*3/uL Absolute Neuts (auto) 16.1 H (2.0-8.3) x10*3/uL Absolute Nucleated RBC 0.000 (0.0-0.012) X10*3/uL Nucleated RBC % (auto) 0.0 (0.0-0.2) /100WBC D-Dimer High Sensitivty 694 NG/ML Sodium (135-145) mmol/L Potassium (3.3-5.1) mmol/L Chloride (96-108) mmol/L Carbon Dioxide (22-29) mmol/L Anion Gap (12-20) BUN (9-16) mg/dL Creatinine (0.5-1.4) mg/dL Estim Creat Clear Calc Estimated GFR Random Glucose (60-115) mg/dL Lactic Acid (0.5-2.0) mmol/L Calcium (8.4-10.2) mg/dL Magnesium (1.6-2.6) mg/dL Total Bilirubin (0.0-1.0) mg/dL AST (5-31) U/L ALT (0-31) U/L Alkaline Phosphatase (39-117) U/L Total Protein (6.5-8.0) g/dL Albumin (3.5-5.0) g/dL Urine Color Urine Appearance Urine pH (5.0-9.0) Ur Specific [place] (1.005-1.025) Urine Protein (Neg-Trace) mg/dL Urine Glucose (UA) (Negative) mg/dL Urine Ketones (Negative) mg/dL Urine Blood (Negative) Urine Nitrite (Negative) Ur Leukocyte Esterase (Negative) Urine RBC (0-2) /HPF Urine WBC (0-5) /HPF Ur Squamous Epith Cells (0-2) /HPF Urine Bacteria (None Seen) Hyaline Casts (0-2) /LPF Influenza Type A (PCR) NEGATIVE (Negative) Influenza Type B (PCR) NEGATIVE (Negative) RSV RNA Qual (PCR) NEGATIVE (Negative) SARS-CoV-2 RNA (RT-PCR) NEGATIVE (Negative) 05/13/22 05/13/22 05/13/22 Range/Units 10:12 10:12 11:24 WBC (4.8-10.8) X10*3/uL RBC (4.20-5.50) X10*6/uL Hgb (12.0-16.0) g/dl Hct (37.0-47.0) % MCV (80.0-98.0) fL MCH (27.0-33.0) pg MCHC (31.0-35.0) g/dl RDW (11.0-16.0) % Plt Count (160-400) X10*3/uL MPV (9.4-12.3) fL Immature Gran % (Auto) (0.0-0.4) % Neut % (Auto) (45-73) % Lymph % (Auto) (20-40) % [place] % (Auto) (2-11) % Eos % (Auto) (0-4) % Baso % (Auto) (0-2) % Lymph # (Auto) (1.2-4.9) X10*3/uL [place] # (Auto) (0.1-1.2) X10*3/uL Eos # (Auto) (0.0-0.4) X10*3/uL Baso # (Auto) (0.0-0.2) X10*3/uL Abs Immat Gran (auto) (0.00-0.03) X10*3/uL Absolute Neuts (auto) (2.0-8.3) x10*3/uL Absolute Nucleated RBC (0.0-0.012) X10*3/uL Nucleated RBC % (auto) (0.0-0.2) /100WBC D-Dimer High Sensitivty NG/ML Sodium 136 (135-145) mmol/L Potassium 4.4 (3.3-5.1) mmol/L Chloride 106 (96-108) mmol/L Carbon Dioxide 20 L (22-29) mmol/L Anion Gap 14 (12-20) BUN 4 L (9-16) mg/dL Creatinine 0.55 (0.5-1.4) mg/dL Estim Creat Clear Calc 169.9 Estimated GFR > 60 Random Glucose 93 (60-115) mg/dL Lactic Acid 1.6 (0.5-2.0) mmol/L Calcium 8.6 D (8.4-10.2) mg/dL Magnesium 1.4 L* (1.6-2.6) mg/dL Total Bilirubin 0.4 (0.0-1.0) mg/dL AST 19 (5-31) U/L ALT 17 (0-31) U/L Alkaline Phosphatase 143 H (39-117) U/L Total Protein 6.0 L (6.5-8.0) g/dL Albumin 3.2 L (3.5-5.0) g/dL Urine Color Yellow Urine Appearance Clear Urine pH 7.5 (5.0-9.0) Ur Specific [place] 1.015 (1.005-1.025) Urine Protein Trace (Neg-Trace) mg/dL Urine Glucose (UA) Negative (Negative) mg/dL Urine Ketones Negative (Negative) mg/dL Urine Blood Negative (Negative) Urine Nitrite Negative (Negative) Ur Leukocyte Esterase Negative (Negative) Urine RBC 0-2 (0-2) /HPF Urine WBC 0-5 (0-5) /HPF Ur Squamous Epith Cells 0-2 (0-2) /HPF Urine Bacteria None Seen (None Seen) Hyaline Casts 0-2 (0-2) /LPF Influenza Type A (PCR) (Negative) Influenza Type B (PCR) (Negative) RSV RNA Qual (PCR) (Negative) SARS-CoV-2 RNA (RT-PCR) (Negative) Independent Interpretation I performed an independent interpretation of an: EKG Interpretation: I have independently interpreted the EKG as sinus tach, nonischemic Vent. Rate : 133 BPM ? ? Atrial Rate : 133 BPM ?? P-R Int : 140 ms? QRS Dur : 072 ms ? ?QT Int : 284 ms ? ? ? P-R-T Axes : 038 043 033 degrees ?? QTc Int : 422 ms ? Sinus tachycardia Otherwise normal ECG When compared with ECG of 26-SEP-2021 18:13, Vent. rate has increased BY? 48 BPM Radiology Impression Radiologist Impression: I have independently reviewed the CT scan showing no PE EXAMINATION: CT ANGIOGRAM OF THE CHEST WITH AND WITHOUT CONTRAST (CT PULMONARY ANGIOGRAM FOR PE) CLINICAL INFORMATION: Reason for Exam sob rule out PE COMPARISON: September 26, 2021? TECHNIQUE: Prior to contrast administration, noncontrast localization images were obtained. ? Subsequently, multidetector volumetric imaging was performed from the thoracic inlet to below the diaphragms following the administration of 65 mL Omnipaque 350 intravenous contrast. No contrast reaction reported Sagittal, coronal, and MIP oblique sagittal reformatted images were obtained on the CT workstation, uploaded to PACS, and reviewed. This CT examination was performed using dose optimization techniques as appropriate, variously including the following: *Automated exposure control *Adjustment of mA and/or kV according to patient size (this includes techniques or standardized protocols for targeted exams where dose is matched to indication/reason for exam; i.e. extremities or head) *Use of iterative reconstruction technique Total exam dose-length product 393 mGy-cm FINDINGS: QUALITY OF STUDY/CONTRAST BOLUS: Satisfactory. PULMONARY ARTERIES: No central or segmental pulmonary emboli. With breathing artifact a few regions where bronchograms superimposed over the arterial branches giving appearance of possible filling defects however this is artifactual. THORACIC AORTA: No aneurysm or dissection. LUNG: There are small lung volumes with regions of groundglass opacity bilaterally likely related to atelectasis. No confluent disease is seen. Central airways are patent. No bronchial wall thickening or bronchiectasis. PLEURA: No pleural effusion or pneumothorax. MEDIASTINUM: Normal heart size.? No pericardial effusion.? No mediastinal lymphadenopathy. There is some mild prominence of right hilar soft tissue which may be related to minimally enlarged lymph node. No evidence of septal bowing or right heart strain. CORONARY ARTERY CALCIFICATION: None visualized on this study. CHEST WALL/AXILLA: No axillary or internal mammary lymphadenopathy. OSSEOUS STRUCTURES: No acute or suspicious osseous abnormality.? UPPER ABDOMEN: Unremarkable.? No reflux of contrast into the hepatic veins to suggest elevated right heart pressures. CT/CT angio chest PE protocol IMPRESSION: No evidence of acute pulmonary artery embolus. ? No evidence of thoracic aortic aneurysm or dissection. ? No significant parenchymal disease appreciated. ? VTE: negative Dictated By: Paul Elizalde MD Signed By: <Electronically signed by Paul Elizalde MD in OV> 05/13/22 1347 DD/ 1229 TD/TT:? Slp Teacher: MIGUEL I have independently reviewed the chest xray showing no signs of pneumonia or acute disease EXAMINATION: XR CHEST CLINICAL INFORMATION: Shortness of breath COMPARISON: September 26, 2021 TECHNIQUE: AP portable view of the chest was obtained. FINDINGS: There are small lung volumes. There is no evidence of acute parenchymal disease, pneumothorax, or pleural effusion. Heart normal size. No evidence of pulmonary edema. XR/XR chest 1V IMPRESSION: No acute disease. ? Dictated By: Paul Elizalde MD Signed By: <Electronically signed by Paul Elizalde MD in OV> 05/13/22 1144 DD/ 1105 TD/TT:? Slp Teacher: MIGUEL Discharge Plan Discharge Clinical Impression: Upper respiratory infection Patient Disposition: Home, Self-Care Additional Instructions: Your EKG showed an elevated HR with no evidence of heart attack. Please present to [facility] [place] [facility] for further evaluation and treatment. [facility] [address] [address] Stand Alone Forms: Work/School Release Interventions: ED Discharge Assessment Last Done: 05/13/22 16:27 Discharge Date/Time: 05/13/22 16:36 Print Language: Mongolian
[2022-05-13] MEDS: predniSONE 20 MG TABLET 40 MG PO (10:15)
[2022-05-13] MEDS: Magnesium Sulfate/H2O 2 GM/50 ML PIGGYBACK IV (10:24)
[2022-05-13 10:25] LABS: MANUAL DIFF FLAG NO
[2022-05-13 10:26] LABS: Basophils Percent Auto 0.2 % (0-2); Eosinophils Absolute Auto 0.2 X10*3/uL (0.0-0.4); Eosinophils Percent Auto 1.3 % (0-4); Hematocrit 36.6 % (37.0-47.0); Hemoglobin 12.1 g/dl (12.0-16.0); Imm Gran Abs Auto 0.16 X10*3/uL (0.00-0.03); Imm Gran Pct Auto 0.9 % (0.0-0.4); Lymphocytes Absolute Auto 1.1 X10*3/uL (1.2-4.9); Lymphocytes Percent Auto 6.1 % (20-40); Mean Corpuscular HGB Conc 33.1 g/dl (31.0-35.0); Mean Corpuscular Hemoglobin 28.9 pg (27.0-33.0); Mean Corpuscular Volume 87.4 fL (80.0-98.0); Mean Platelet Volume 10.9 fL (9.4-12.3); Monocytes Percent Auto 5.2 % (2-11); Neutrophils Absolute Auto 16.1 x10*3/uL (2.0-8.3); Neutrophils Percent Auto 86.3 % (45-73); Platelet Count 328 X10*3/uL (160-400); Red Blood Count 4.19 X10*6/uL (4.20-5.50); Red Cell Distribution Width 13.6 % (11.0-16.0); White Blood Count 18.7 X10*3/uL (4.8-10.8)
[2022-05-13 10:27] LABS: Appearance Urine Clear; Color Urine Yellow; Glucose Urine UA Negative (Negative); Leukocyte Esterase Urine Negative (Negative); Nitrite Urine Negative (Negative); PH 7.5 (5.0-9.0); Specific Gravity - Urine 1.015 (1.005-1.025); Urine Blood Negative (Negative); Urine Ketones Negative (Negative); Urine Protein Trace mg/dL (Neg-Trace)
[2022-05-13 10:28] LABS: Influenza A PCR NEGATIVE (Negative); Influenza B PCR NEGATIVE (Negative); Resp Syncy Virus RNA Qual PCR NEGATIVE (Negative); SARS COV2 PCR INHOUSE NEGATIVE (Negative)
[2022-05-13] MEDS: Albuterol Sulfate 2.5 MG, Albuterol Sulfate (0.083%) 2.5 MG 5 MG INHALE (10:28)
[2022-05-13 10:30] LABS: Bacteria Urine None Seen (None Seen); Hyaline Casts Urine 0-2 /LPF (0-2); RBC Urine 0-2 /HPF (0-2); Squamous Epithelial Cell Urine 0-2 /HPF (0-2); WBC Urine 0-5 /HPF (0-5)
[2022-05-13 10:34] VITALS: PULSE 131; O2SAT 98
[2022-05-13 10:34] LABS: D Dimer High Sensitivity 694 NG/ML
--- NOTE | 2022-05-13 11:03 | P.CONOB_ITS ---
OB Consult Note - [facility] Data Service Date: 05/13/22 Primary Care Provider: Unknown Physician Narrative I was consulted at 10:53 a.m. on Lorri Silvestre who is a 31 year old 36 weeks and 3 days of gestation presented emergency room with with PMH of asthma complaining of history of fever 101 yesterday, body aches, exertional dyspnea with pleuritic chest pain and productive cough. No history of lower leg redness or swelling. The patient was treated for an upper respiratory infection with antibiotics a few weeks ago, however; her symptoms do not improve according to her. She states she is prescribed albuterol and symbicort for her asthma but has not been using the steroid inhaler. She denies any abdominal pain or cramping, no vaginal bleeding, leakage of fluid, no nausea, or vomiting, no diarrhea, headache, or blurring of vision. Good movement. In the emergency room heart rate is 131, respiratory rate is 25, influenza a and B, COVID/RSV or are negative and D-dimer is elevated PHYSICAL THERAPIST TECHNICIAN - Review of Systems Review of Systems ROS Unobtainable: All systems reviewed & are unremarkable except as noted in HPI and below OB PMFSH Past Medical History Medical History (Updated 05/14/22 @ 00:01 by Barby Guardado) Asthma Family History Family History (Updated 05/13/22 @ 15:22 by Thais Banda NP) Other Factor V Leiden Social History Social History Smoked in Last 30 Days: No Use of substances other than those prescribed or required for medical reasons: No Advance Directives: No Advance Directives Information Provided: Yes Patient : Yes Meds Allergies Allergy/AdvReac Type Severity Reaction Status Date / Time Sulfa (Sulfonamide Allergy Intermediate HIVES Verified 09/26/21 18:16 Antibiotics) [SULFA (SULFONAMIDE ANTIBIOTICS)] Active Medications: Current Medications Magnesium Sulfate (Magnesium Sulfate/H2o) 2 gm in 50 mls @ 25 mls/hr IV ONCE ONE Stop: 05/13/22 11:51 Last Admin: 05/13/22 10:24 Dose: 25 mls/hr OB Physical Exam Physical Exam Additional Comments: Reported by ALISSA Barr as the following: CHEST:? Normal to inspection HEART:? Normal rate and regular rhythm, normal S1/S2, no M/R/G LUNGS:? Left LS clear, Rt LS with expiratory wheeze in upper lobe.? Able to speak in complete sentences. No crackles or rhonchi auscultated ABDOMEN:? Soft, nontender, nondistended.? Normal bowel sounds noted OB Consult Results Labs 05/13/22 10:12 05/13/22 10:12 Labs: Short CBC 05/13/22 Range/Units 10:12 WBC 18.7 H (4.8-10.8) X10*3/uL Hgb 12.1 (12.0-16.0) g/dl Hct 36.6 L (37.0-47.0) % Plt Count 328 (160-400) X10*3/uL Urine 05/13/22 Range/Units 10:12 Urine Color Yellow Urine Appearance Clear Urine pH 7.5 (5.0-9.0) Ur Specific [place] 1.015 (1.005-1.025) Urine Protein Trace (Neg-Trace) mg/dL Urine Glucose (UA) Negative (Negative) mg/dL OB - CN: A/P Assessment and Plan (1) and not yet delivered in third trimester: Status: Acute Plan 10:55 a.m.> I called back to the emergency room and discussed the patient with ALISSA Lara and recommended the following: Check heart rate, per [place] [employer], diagnostic algorithm for suspected PE in , since the patient does not have lower extremity symptoms, next step in the management is chest x-ray, if negative, order a V/Q scan, if abnormal chest x-ray, next step is to proceed with a CTA. Transfer patient out to [facility] since there is no maternity unit at [facility] with no ability to monitor heart rate and maternal uterine contractions. Recommend void delay in transferring the patient out. I spent a total of 20 minutes reviewing the chart, communicating with the emergency room provider and documenting in the medical record Time Spent With Patient Time: Total time managing care of this patient today ____ minutes.
[2022-05-13 11:05] LABS: Alanine Aminotransferase 17 U/L (0-31); Albumin Level 3.2 g/dL (3.5-5.0); Alkaline Phosphatase 143 U/L (39-117); Anion Gap 14 (12-20); Aspartate Amino Transferase 19 U/L (5-31); Bilirubin Total 0.4 mg/dL (0.0-1.0); Blood Urea Nitrogen 4 mg/dL (9-16); Calcium 8.6 mg/dL (8.4-10.2); Carbon Dioxide 20 mmol/L (22-29); Chloride 106 mmol/L (96-108); Creatinine Clr Calc Pharmacy 169.9; Estimated Glomerular Filt Rate > 60; Glucose Random 93 mg/dL (60-115); Magnesium 1.4 mg/dL (1.6-2.6); Potassium 4.4 mmol/L (3.3-5.1); Sodium 136 mmol/L (135-145)
--- NOTE | 2022-05-13 11:20 | PC.NURSE ---
heart rate 154 with doppler.
[2022-05-13 11:21] VITALS: TEMP 37.7
[2022-05-13 11:38] LABS: Lactic Acid 1.6 mmol/L (0.5-2.0)
[2022-05-13] MEDS: iohexoL 350 MG/ML 100 ML INFUS..BTL IV (12:27)
[2022-05-13 12:54] VITALS: BP 133/69; PULSE 135; RESP 20; TEMP 36.8; O2SAT 95
[2022-05-13] MEDS: 0.9 % Sodium Chloride 1,000 ML 999 ML IV ×2 (13:51→15:11)
[2022-05-13 14:09] VITALS: BP 121/66; PULSE 122; RESP 20; TEMP 36.8; O2SAT 96
[2022-05-13 16:06] VITALS: BP 116/63; PULSE 124; RESP 20; TEMP 36.5; O2SAT 96
== END 2022-05-13 16:36 | disposition home or self-care (01) ==
PROVIDERS: Nurse Practitioner Family; Emergency Provider Emergency Medicine
DX: O99.513 Diseases of the respiratory system complicating pregnancy, third trimester (principal); Z3A.36 36 weeks gestation of pregnancy; J06.9 Acute upper respiratory infection, unspecified; R06.02 Shortness of breath; R50.9 Fever, unspecified; Z20.822 Contact with and (suspected) exposure to COVID-19; Z20.828 Contact with and (suspected) exposure to other viral communicable diseases; Z79.899 Other long term (current) drug therapy
CPT/HCPCS: 0241U; 36415; 71045; 71275; 80053; 81001; 83605; 83735; 85025; 85379; 87040; 93005; 94640; 96361; 96365; 96366; 99285; J3475; Q9967

== ENCOUNTER 2024-05-15 13:25 | Outpatient (AMB) | payer OTHER, SELFPAY ==
--- NOTE | 2024-05-15 13:32 | A.OFFPC_ITS ---
Vital Signs 05/15/24 13:34 Height 5 ft 2 in Weight 216 lb 8 oz BMI 39.6 BP 130/60 Blood Pressure Location Lt brachial Position Sitting Pulse 78 Pulse Source Pulse Oximeter Temp 97.2 F Temp Source Skin Pulse Oximetry (%) 98 Oxygen Delivery Method Room Air Intake Visit Reasons: establish care Intake Note: Patient is a new patient here to establish care for Chronic back pain, Asthma, Anxiety, Depression . Transferring care from Dr Anna Molina ([facility]). Medical records have been requested and have not received. 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 Accompanied by: Self / Same As Patient Allergies Sulfa (Sulfonamide Antibiotics) [SULFA (SULFONAMIDE ANTIBIOTICS)] Allergy (Intermediate, Verified 05/15/24 13:59) HIVES Medication List - Last Reconciled 05/15/24 by Enid Cox PA-C acetaminophen ER (Pain Relief (acetaminophen)) 650 mg PO Q8H albuterol sulfate 90 mcg/actuation 1 inh inhalation QID budesonide-formoterol 80-4.5 mcg/actuation (Symbicort) 1 inh inhalation BID magnesium 200 mg PO DAILY mecobalamin (vitamin B12) 500 mcg PO DAILY vit-iron fum-folic ac 28 mg iron- 800 mcg 1 tab PO DAILY Tobacco use date assessed: 05/15/24 Dental Screening Dental Screen Date: 05/15/24 Did you have a dental visit in the last 12 months?: No Did you have a dental problem in the last 6 months where you did not have access to dental care?: No Was dental information given to patient?: No HPI establish care HPI Details 33-year-old female with no relevant past medical history coming to the office for the 1st time. Patient was previously being seen by [facility] last seen almost 2 years ago. She was given Symbicort to be used daily for her asthma maintenance but since leaving her jaw be candle has not needed this medication. She uses her albuterol inhaler only about few times per month. She follows with gynecology through [facility] and recently had a Pap smear and has an IUD in place. She does struggle with anxiety and depression and has never been medicated and never had or had a counselor. She does have a history of a bulging disc in the C6-C7 area in 2020. She was previously having low back pain but is no longer having pain in this area. FOR[facility]LY [facility], [facility] Medical History (Updated 05/15/24 @ 14:03 by Enid Cox PA-C) Asthma Surgical History (Updated 05/15/24 @ 14:03 by Enid Cox PA-C) Hx of tonsillectomy History of 2 sections Family History Father Substance use disorder Other Factor V Leiden Family history of cardiac disorder Family history of diabetes mellitus Social History Housing: Apartment Alcohol intake: current Alcohol intake frequency: a few times a month Patient Tobacco Use Status: Never used Tobacco e-Cigarette/Vaping Use: Never Used Second Hand Smoke Exposure: No service: No Current occupational status: unemployed Cognitive needs: No Hearing needs: No Vision needs: Yes (Glasses) Female Reproductive History Menstrual control method: progestin IUCD Total pregnancies: 2 History of abnormal pap smear: Yes Questionnaire PHQ-9 Over the last 2 weeks, how often have you been bothered by any of the following problems? 1. Little interest or pleasure in doing things: several days 2. Feeling down, depressed, or hopeless: several days 3. Trouble falling or staying asleep, or sleeping too much: not at all 4. Feeling tired or having little energy: several days 5. Poor appetite or overeating: not at all 6. Feeling bad about yourself - or that you are a failure or have let yourself or your family down: several days 7. Trouble concentrating on things, such as reading the newspaper or watching television: not at all 8. Moving or speaking so slowly that other people could have noticed. Or the opposite - being so fidgety or restless that you have been moving around a lot more than usual: not at all 9. Thoughts that you would be better off or of hurting yourself in some way: not at all Total score: 4 Depression Screening Interpretation: Positive (referral placed for counseling) Depression Screening Done: Yes 93958 - PHQ-9 Billing: Yes Source: Developed by Drs. Rebel Campos, Bettye Tracey, Wallace Murdock and colleagues, with an educational shawna from [employer]. Thrive Questionnaire Date Thrive assessed: 05/15/24 I am a: Patient What is your living situation today?: I have a steady place to live Within the past 12 months, did the food you bought not last and you didn't have the money to get more?: Never true Within the past 12 months, did you worry whether your food would run out before you got money to buy more?: Never true Do you have trouble paying for medicines?: No Do you have trouble getting transportation to medical appointments?: No Do you have trouble paying your heating and electricity bill?: No Do you have trouble taking care of your child, family member or friend?: No Do you have trouble with day-to-day activities such as bathing, preparing meals, shopping, managing finances, etc.?: I choose not to answer this question Are you currently unemployed and looking for a job?: Yes Are you interested in more education?: I choose not to answer this question Please select the resources that you would like help with: Childcare Currently or been in a relationship where the following occur: I choose not to answer THRIVE Score: 0 AUDIT C Alcohol Use Questionnaire (AUDIT-C) 1. How often do you have a drink containing alcohol?: Monthly or less 2. How many drinks containing alcohol do you have on a typical day when you are drinking?: 1 or 2 3. How often do you have six or more drinks on one occasion?: Less than monthly Total Score: 2 ANTONIA-7 AMB Questionnaire ANTONIA-7 Date ANTONIA - 7 assessed: 05/15/24 Feeling nervous, anxious, or on edge: 1 = Several days Not being able to stop or control worryin = Several days Worrying too much about different things: 1 = Several days Trouble relaxin = Several days Being so restless that it is hard to sit still: 0 = Not at all Becoming easily annoyed or irritable: 1 = Several days Feeling afraid as if something awful might happen: 1 = Several days Total ANTONIA-7 score (0-4 normal; 5-9 mild; 10-14 moderate; 15-21 severe): 6 Source: Developed by Drs. Rebel Campos, Wallace Schultz and colleagues, with an educational shawna from [employer]. ANTONIA-7 Assessment Billing ANTONIA-7 Assessment Tool: ANTONIA-7 Assessment 08496 Review of Systems Const Denies body aches, Denies fatigue, Denies fever(s), Denies frequent falls, Denies headache(s) and Denies weakness Eyes Reports no additional complaints and Denies change in vision ENT Denies dysphagia, Denies dizziness, Denies facial pain, Denies headache(s), Denies nasal congestion and Denies odynophagia Card Denies chest pain, Denies syncope, Denies irregular heart rhythm, Denies leg edema, Denies lightheadedness and Denies dyspnea Resp Denies cough and Denies dyspnea GI Denies abdominal pain, Denies constipation, Denies dysphagia, Denies dyspepsia, Denies diarrhea, Denies nausea, Denies odynophagia and Denies vomiting Denies urinary frequency, Denies dysuria, Denies urinary hesitancy and Denies urinary urgency Musc Denies back pain and Denies myalgias Skin/Breast Reports system reviewed and no additional complaints, except as documented Neuro Denies dizziness, Denies syncope, Denies frequent falls, Denies headache(s) and Denies weakness Psych Reports no additional complaints Endo Denies fatigue Physical exam (Primary Care) Vital Signs: Last Vital Signs Temp 97.2 F 05/15/24 13:34 Pulse 78 05/15/24 13:34 BP 130/60 05/15/24 13:34 Pulse Ox 98 05/15/24 13:34 Oxygen Delivery Method Room Air 05/15/24 13:34 BMI result Body Mass Index 39.6 Tobacco/Smoking Status: Tobacco use Status Tobacco use date assessed 05/15/24 05/15/24 13:37 Patient Tobacco Use Status Never used Tobacco 05/15/24 13:51 e-Cigarette/Vaping Use Never Used 05/15/24 13:51 PHQ-9: PHQ-9 Score PHQ-9: Total score 4 05/15/24 14:08 Depression Screening Interpretation: Positive (referral placed for counseling) Thrive Assessment: Date of Thrive Assessment Date Thrive assessed 05/15/24 05/15/24 13:37 Currently or been in a relationship where the following occur: I choose not to answer Const General: cooperative, healthy appearing, comfortable and no acute distress Orientation/consciousness: patient oriented x3 HENMT Head: Yes normocephalic Ears: hearing grossly normal bilaterally General nose exam: Normal external nose present Eyes General: appearance normal, both eyes and all related structures Conjunctivae: conjunctivae normal Neck Neck: Yes full ROM and Yes no lymphadenopathy Resp Effort & Inspection: normal respiratory effort Auscultation: clear to auscultation bilaterally, no crackles, no rales, no rhonchi and no wheezes Cardio Rate: regular rate Rhythm: regular rhythm Skin General skin exam: no rashes or lesions noted Neuro General: patient oriented x3 Gait exam (Neuro): Normal gait present Extrem General: Yes normal to inspection, Yes full ROM and No edema Psych Affect: normal affect Attitude: cooperative Insight: Good insight present (Psych) Judgement: Good judgement present (Psych) Coding Level of Care Code New Pt Level 4 (96456) Diagnoses Asthma J45.909 Depression F32.A Anxiety F41.9 Obesity E66.9 Additional Codes ANTONIA-7 Assessment Billing - ANTONIA-7 Assessment Tool: ANTONIA-7 Assessment 60737 ([id number]) PHQ-9 - 29239 - PHQ-9 Billing: Yes ([id number]) Assessment & Plan Assessment & Plan (1) Asthma: Code(s): J45.909 - Unspecified asthma, uncomplicated Category: Medical Plan: Asthma currently controlled on present medications. Continue on albuterol as needed. Avoid triggers such as allergies. (2) Depression: Code(s): F32.A - Depression, unspecified Category: Medical Plan: Patient complaining of depression denies any thoughts of self-harm or harm to others. She is declining medical management at this time but is requesting referral to counseling. Referral placed for counseling. (3) Anxiety: Code(s): F41.9 - Anxiety disorder, unspecified Category: Medical Plan: Patient complaining of anxiety declining medical management at this time but would like a counselor. Referral placed for counseling. (4) Obesity: Code(s): E66.9 - Obesity, unspecified Category: Medical Plan: Healthy diet and regular exercise is encouraged. Plan Ordered for updated blood work and we will have patient follow up in 3 months for annual physical. This note was constructed using voice recognition software. While every effort has been made to ensure accuracy and course developer, still areas may have been included sometimes these areas may affect the content or meeting of the given symptoms. Total time spent caring for the patient today was thirty minutes. This includes time spent before the visit reviewing the chart, time spent during the visit, and time spent after the visit and documentation. Orders: Orders TSH reflex Free T4 Today Z00.00 - Encounter for general adult medical exami nation without abnormal findings Vitamin B12 and Folate Today Z00.00 - Encounter for general adult medical examination without abnormal findings Lipid Panel Today E78.00 - Pure hypercholesterolemia, unspecified Complete Blood Count Auto Diff Today Z00.00 - Encounter for general adult medical examination without abnormal findings Comprehensive Met. Panel Today Z00.00 - Encounter for general adult medical examination without abnormal findings Vitamin D 25-OH Total Today Z00.00 - Encounter for general adult medical examination without abnormal findings Referrals Counseling Referral F32.A - Depression, unspecified, F41.9 - Anxiety disorder, unspecified
[2024-05-15 13:34] VITALS: BP 130/60; PULSE 78; TEMP 36.2; O2SAT 98; BMI 39.6
--- OUTSIDE RECORDS SUMMARY | 2024-05-15 15:07 | XMS_ITS | Encounter Summary ---
Author Organization [facility] Address [address] [place] [id number] Phone Care Team Providers Care Cloth Seconds Sorter Name Role Phone Jaky Ely MD Primary Care Provider [phone] Encounter Details Date Type Department Care Team (Late st Contact Info) Description 12/06/2016 Conversion Encounter [facility] [place] [address] [place] [address] Social History Tobacco Use Types Packs/Day Years Used Date Smoking Tobacco: Never Assessed Comments Unknown Sex and Gender Information Value Date Recorded Sex Assigned at Not on file Legal Sex Female 4:40 PM EDT Gender Identity Not on file Sexual Orientation Not on file documented as of this encounter Plan of Treatment Not on file documented as of this encounter Visit Diagnoses Not on filedocumented in this encounter Care Teams Cloth Seconds Sorter Relationship Specialty Start Date End Date Jaky Ely MD [address] [place] [address] PCP - General 11/30/16 documented as of this encounter
--- OUTSIDE RECORDS SUMMARY | 2024-05-15 15:07 | XMS_ITS | Encounter Summary ---
Author Organization [facility] Address [address] [place] [id number] Phone Care Team Providers Care Composing Room Supervisor Name Role Phone Jaky Ely MD Primary Care Provider [phone] Encounter Details Date Type Department Care Team (Late st Contact Info) Description 11/30/2011 Documentation [facility] [place] [facility] [address] [place], [place] [phone] Family Medicine, Physician [address] [place], [place] [address] Social History Tobacco Use Types Packs/Day Years [...] on filedocumented in this encounter Care Teams Composing Room Supervisor Relationship Specialty Start Date End Date Jaky Ely MD [address] [place] [address] MARLENE Paredes [id number] PCP - General 11/30/16 documented as of this encounter
--- OUTSIDE RECORDS SUMMARY | 2024-05-15 15:08 | XMS_ITS | Data Portability ---
Author Organization [facility], FORMERLY [facility] Address [address] [place] [address] Care Team Providers Care Rn Wellness Name Role Phone DELIA GAFFNEY Primary Care Provider Unavailab le Assessment No assessment recorded. Plan of Treatment Reminders Order Date Submit Date Provider Last Modified By Organization Details Last Modified Time Details Appointments None recorded. Lab TSH, serum or plasma 2016 017 [facility], [address] [place] [address], [id number], 7 12:11:24 CBC 2016 017 [facility], [address] [place] [address], [address], 7 08:42:13 vitamin B12, serum 2016 017 [facility], [address] [place] [address], [address], 7 10:49:30 Referral gastroente rologist referral - hx of GERD, went to the ER started on PPI and carafate. ?need EDG 2016 017 RENY Hill MD, [address] [place] [address] [address], [address], 8 05:01:09 Procedures None recorded. Surgeries None recorded. Imaging None recorded. Medication Orders Gypsy Allergy 180 mg tablet 2015 Brandon blue [facility] #2025, [address] [place], [address], 6 16:02:38 Symbicort 80 mcg-4.5 mcg/actuat ion HFA aerosol inhaler 2015 016 [facility] #2025, [address] [place], [address], 6 08:39:04 Ventolin HFA 90 mcg/actuat ion aerosol inhaler 2015 016 [facility]2025, [address] [place], [address], 6 08:39:04 Ventolin HFA 90 mcg/actuat ion aerosol inhaler 2015 016 [id number] [facility]2071, [address] [place] [address], [address], 6 04:09:49 Symbicort 80 mcg-4.5 mcg/actuat ion HFA aerosol inhaler 2015 016 INTERFACE [facility], [address] [place] [address], [address], 6 16:40:25 clobetasol 0.05 % topical cream 2015 016 [email or web address] [facility], [address] [place] [address], [address], 7 10:12:29 clobetasol 0.05 % topical cream 2016 017 [email or web address] [facility], [address] [place], [address], 7 10:12:29 Vitamin D3 50 mcg (2,000 unit) capsule 2016 017 INTERFACE [facility], [address] [place] [address], [address], 7 15:27:35 omeprazole 20 mg capsule,de layed release 2016 017 [id number], [address], [place], [place], [id number], 7 10:36:25 Patient TargetsNo targets recorded. Patient Instructions Encounter Date Encounter Id Patient Instructions Last Modified By Organization Details Last Modified Time 05/20/2015 [id number] asthma handout / teaching Not available 05/20/2015 14:35:54 asthma action plan Not availab le 05/20/2015 14:35:[address] an ages 0-11 yrs [email or web address] Not available 05/20/2015 14:35:54 Take care of any constipation with fluids, fiber and laxative if needed. Cont with the zantac and diet. Discussed GB disease.? ? ? Option of ultrasound, but is very reasonable to wait and see. She is in agreement. Not available 05/20/2015 14:35:54 08/02/2015 [id number] -Start gypsy/fexofenadi ne (not the D ? ? ?- that has a decongestant in it that causes rebound congestion if you stop taking it) -Keep using symbicort with spacer regularly -Use the proair as needed -If you know you're going to be working in an allergen-filled space, get a N90 (or something similar) mask from [employer] or [employer] to keep you from inhaling things -Physical in November Not available 08/02/2015 08:39:04 02/16/2016 [id number] Well Visit, Ages 18 to 65: Care Instructions [email or web address] [id number] Not available 04/07/2016 04:09:55 -Keep taking symbicort regularly and albuterol as needed -Spirometry at some point between now and next visit -If you get sick on a weekend, there is urgent care in the [place] office by appointment ([phone]) -Follow-up in 6 months, sooner if any issue Not available 02/16/2016 16:39:09 08/15/2016 [id number] -Start vitamin D 3 2000 IU daily [email or web address] Not available 08/15/2016 15:27:07 02/21/2017 [id number] After a discussi on of treatment options, which included consideration of best practices, patient preferences, and the patient? s individual lifestyle and treatment goals, as well as consideration and attempted mitigation of any barriers to meeting the patient? s goals, the following treatment plan and objectives were adopted: You have received a new prescription today. We have discussed indications for new prescription, risks and benefits of medication, common side effects and how to manage, and reasons to notify prescriber of adverse effects or discontinuation. -GI referral placed -start omeprazole as directed -finish carafate -watch your diet, caffeine, and carbonated drinks. [email or web address] Not available 02/21/2017 14:11:54 Reason for Referral hx of GERD, went to the ER s tarted on PPI and carafate. ?need EDG Referring Physician: Lamar Blackmon, Family Medicine, Encounter Date: 02/21/2017 Results Created Date Observation Date Name Description Value Unit Range Abnormal Flag Note LastModifiedBy Organization Detail LastModifiedTime 08/16/19 17 08/15/2016 BMP, serum or plasm a glucose 85 mg/dL 70-100 Not Available [address], [address], 08/15/2016 12:02:40 08/16/19 17 08/15/2016 BMP, serum or plasm a BUN 12 mg/dL 7-18 Not Available [address], [address], 08/15/2016 12:02:40 08/16/19 17 08/15/2016 BMP, serum or plasm a creatinine 0.6 mg/dL 0.8-1. 3 low Not Available [address], [address], 08/15/2016 12:02:40 08/16/19 17 08/15/2016 BMP, serum or plasm a B/C 20.0 ratio Not Available [address], [address], 08/15/2016 12:02:40 08/16/19 17 08/15/2016 BMP, serum or plasm a GFR -non 134.3 mL/mi n Recom evangelist d GFR by the [facility]io n[facility] Kidne y [facility] ation >60 mL/mi n/1.7 3m2 - Gabriela l <60 mL/mi n/1.7 3m2 - Chron ic Kidne y Disea se <15 mL/mi n/1.7 3m2 - Kidne y Failu re Not Available [address], [address], 08/15/2016 12:02:40 08/16/19 17 08/15/2016 BMP, serum or plasm a GFR - if 154.5 mL/mi n For Afric an Ameri can patie nts: Resul ts Multi plied by 1.21 Not Available [address], [address], 08/15/2016 12:02:40 08/16/19 17 08/15/2016 BMP, serum or plasm a sodium 140 mmol/ L 136-14 5 Not Available [address], [address], 08/15/2016 12:02:40 08/16/19 17 08/15/2016 BMP, serum or plasm a potassium 4.7 mmol/ L 3.5-5. 1 Not Available [address], [address], 08/15/2016 12:02:40 08/16/19 17 08/15/2016 BMP, serum or plasm a chloride 104 mmol/ L 96-107 Not Available [address], [address], 08/15/2016 12:02:40 08/16/19 17 08/15/2016 BMP, serum or plasm a anion gap 11.1 5.0-15 .0 Not Available [address], [address], 08/15/2016 12:02:40 08/16/19 17 08/15/2016 BMP, serum or plasm a CO2 25 mmol/ L 21-32 Not Available [address], [address], 08/15/2016 12:02:40 08/16/19 17 08/15/2016 BMP, serum or plasm a calcium 9.2 mg/dL 8.5-10 .3 Not Available [address], [address], 08/15/2016 12:02:40 08/16/19 17 08/15/2016 lipid panel , serum cholesterol 144 mg/dL <200 mg/dl Sheyla able 200-2 39 mg/dl Borde rline High >240 mg/dl High Not Available [address], [address], 08/15/2016 12:02:40 08/16/19 17 08/15/2016 lipid panel , serum triglyceride s 29 mg/dL <150 mg/dL Gabriela l 150-1 99 mg/dL Borde rline High 200-4 99 mg/dL High >500 mg/dL Very High Not Available [address], [address], 08/15/2016 12:02:40 08/16/19 17 08/15/2016 lipid panel , serum direct HDL 63 mg/dL Not Available [address], [address], 08/15/2016 12:02:40 08/16/19 17 08/15/2016 LDL, calcu lated , serum (OBS) LDL - calculated 75.2 RISK CATEG ORY LDL GOAL _ CHD or CHD Risk Equiv alent s <100 mg/dl (10-y ear risk >20%) 2+ Risk Facto rs <130 mg/dl (10-y ear risk <= 20%) 0-1 Risk Facto r? <160 mg/dl ? Almos t all peopl e with 0-1 risk facto r have a 10 year risk <10%, thus 10 year risk asses ment in peopl e with 0-1 risk facto r is not neces tanya. Not Available [address], [address], 08/15/2016 12:02:41 08/16/19 17 08/16/2016 CBC WBC 6.1 K/? ? ?L 4.0-10 .0 Not Available [address], [address], 08/16/2016 08:42:13 08/16/19 17 08/16/2016 CBC RBC 4.33 M/? ? ?L 3.93-5 .22 Not Available [address], [address], 08/16/2016 08:42:13 08/16/19 17 08/16/2016 CBC HGB 12.7 g/dL 11.2-1 5.7 Not Available [address], [address], 08/16/2016 08:42:13 08/16/19 17 08/16/2016 CBC HCT 40.8 % 34.1-4 4.9 Not Available [address], [address], 08/16/2016 08:42:13 08/16/19 17 08/16/2016 CBC MCV 94.2 ? ? ?L 79.4-9 4.8 Not Available [address], [address], 08/16/2016 08:42:13 08/16/1908/16/2016 CBC MCH 29.3 pg 25.6-3 2.2 Not Available [address], [address], 08/16/2016 08:42:13 08/16/1908/16/2016 CBC MCHC 31.1 g/dL 32.2-3 5.5 low Not Available [address], [address], 08/16/2016 08:42:13 08/16/19 17 08/16/2016 CBC plt 250.0 K/? ? ?L 182.0- 369.0 Not Available [address], [address], 08/16/2016 08:42:13 08/16/1908/16/2016 CBC MPV 12.0 9.4-12 .3 Not Available [address], [address], 08/16/2016 08:42:13 08/16/1908/16/2016 CBC neut% 55.5 % 34.0-7 1.1 Not Available [address], [address], 08/16/2016 08:42:13 08/16/1908/16/2016 CBC neut# 3.4 1.6-6. 1 Not Available [address], [address], 08/16/2016 08:42:13 08/16/1908/16/2016 CBC lymph % 33.3 % 19.3-5 1.7 Not Available [address], [address], 08/16/2016 08:42:13 08/16/1908/16/2016 CBC lymph # 2.0 K/? ? ?L 1.2-3. 7 Not Available [address], [address], 08/16/2016 08:42:13 08/16/1908/16/2016 CBC mono% 8.7 % 4.7-12 .5 Not Available [address], [address], 08/16/2016 08:42:13 08/16/1908/16/2016 CBC mono# 0.5 0.2-0. 6 Not Available [address], [address], 08/16/2016 08:42:13 08/16/1908/16/2016 CBC eo% 2.0 % 0.7-5. 8 Not Available [address], [address], 08/16/2016 08:42:13 08/16/1908/16/2016 CBC eo# 0.1 0.0-0. 4 Not Available [address], [address], 08/16/2016 08:42:13 08/16/1908/16/2016 CBC baso% 0.5 % 0.1-1. 2 Not Available [address], [address], 08/16/2016 08:42:13 08/16/1908/16/2016 CBC baso# 0.0 0.0-0. 1 Not Available [address], [address], 08/16/2016 08:42:13 08/16/1908/16/2016 CBC RDW-CV 14.1 % 11.7-1 4.4 Not Available [address], [address], 08/16/2016 08:42:13 08/16/1908/16/2016 TSH, serum or plasm a TSH 1.49 uIU/m L 0.50-6 .00 The Ameri can Colle ge of Endoc rinol ogy and Ameri can Thyro id Assoc iatio n recom mend goal TSH value s betwe en 0.4-4 .0 mIU/m L. Not Available [address], [address], 08/16/2016 12:11:24 08/16/1908/22/2016 vitam in B12, serum vitamin B12 547 pg/mL 230-10 50 Not Available [address], [address], 08/22/2016 10:49:30 Result Notes None recorded. Problems Name Problem SNOMED Code Status Onset Date Resolution Date Notes Provider Name and Address Organization Details Recorded Time Tobacco user 215227012 Completed 08/15/[address] G[address]ney [address] [place], [place] [address], [address], [facility] 7 13:15:27 Allergic rhinitis 66535348 Active Delia Gaffney [address] [place] [address] [place], [address], [facility] 6 14:04:18 Acute bronchitis 22589482 Completed 03/11/2013 Delia Gaffney [address] [place], [place] [address], [address], [facility] 6 14:04:18 Asthma 213704846 Active Delia Gaffney [address] [place], [place] [address], [address], [facility] 6 08:39:04 Abdominal pain 35339982 Active Patricia Angel NP [address] [place], [place] [address], [address], [facility] 6 14:35:54 Constipatio n 02095922 Active Patricia Angel NP [address] [place], [place] [address], [place], [address], [facility] 6 14:35:54 Problem Notes None recorded. Procedures Surgical History Date Name Laterality Status Provider Name and Address Organization Details Recorded Time 05/20/19 16 Asthma Control Test (12 + years old) completed Sudha Camarena CMA [facility] 05/20/2015 13:48:48 11/12/19 13 completed Delia Gaffney [address] [place] [address], [address], [facility] 12/04/2012 15:42:48 Tonsillectomy completed Not Available [facility] 03/08/2011 06:06:16 Imaging Results None recorded. Procedure Notes None recorded. Medical Equipment None Reported. Allergies Allergen ID Allergen Name Allergen Category Reaction Reaction Severity Criticality Documentation Date Start Date Code Code System Note Provider Name and Address Organization Details Recorded Time 45450 Substance with sulfonami de structure and antibacte rial mechanism of action (substanc e) medicatio n hives Not available Not available 10/10/2010 [id number] SNOMED Not Available [facility] 1 06:05:41 Medications Name Sig Start Date Stop Date Status Note LastModified by Organization Details LastModified Time clindamyc in HCl 300 mg capsule Take 1 capsule every 8 hours by oral route for 10 days. 02/16 completed Not Available Not Available Not Available azithromy margy 250 mg tablet active Not Available Not Available No t Available sucralfat e 1 gram tablet take 1 tablet by mouth before meals active Not Available Not Available No t Available prednison e 20 mg tablet Take 3 tablets every day by oral route for 5 days. active Not Available Not Available No t Available clobetaso l 0.05 % topical cream APPLY A THIN LAYER TO THE AFFECTED AREA(S) BY TOPICAL ROUTE 2 TIMES PER DAY FOR 14 DAYS 02/21 completed Not Available Not Available Not Available Flonase 50 mcg/actua tion nasal spray,noemí pension Inhale 1 SPRAY EN TWICE/ DAY by intranas al route. 2011 active Not Available Not Available Not Avai lable fexofenad ine 180 mg tablet Take 1 tablet every day by oral route for 30 days. 02/15 completed Not Available Not Available Not Available omeprazol e 40 mg capsule,d elayed release take 1 capsule by mouth twice a day active Not Available Not Available No t Available amoxicill in 875 mg tablet active Not Available Not Available Not Available betametha sone valerate 0.1 % topical cream APPLY A THIN LAYER TO THE AFFECTED AREA(S) BY TOPICAL ROUTE ONCE DAILY active Not Available Not Available No t Available cephalexi n 500 mg capsule TAKE ONE CAPSULE BY MOUTH 3 TIMES A DAY FOR 3 DAYS 02/15 completed Not Available Not Available Not Available omeprazol e 20 mg capsule,d elayed release take 1 capsule by mouth every morning active Not Available Not Available No t Available Iophen C-NR 10 mg-100 mg/5 mL oral liquid Take 10 mL every 4 hours by oral route as needed. active Not Available Not Available No t Available naproxen 500 mg tablet TAKE 1 TABLET BY MOUTH TWICE A DAY WITH FOOD FOR 7 DAYS active Not Available Not Available No t Available Ventolin HFA 90 mcg/actua tion aerosol inhaler Inhale 2 puffs every 4 hours by inhalati on route as needed. active Not Available Not Available No t Available clobetaso l 0.05 % lotion APPLY A THIN LAYER TO THE AFFECTED AREA(S) BY TOPICAL ROUTE 2 TIMES PER DAY 02/21 completed insuranc e issues 02-21-17 cs Not Available Not Available Not Available Flovent HFA 110 mcg/actua tion aerosol inhaler Inhale 1 puff twice a day by inhalati on route. active Not Available Not Available No t Available active Not Available Not Avai lable Not Available Mirena 2012 active Placed by [employer]REAT ANALYST Not Available Not Available Not Available Symbicort 80 mcg-4.5 mcg/actua tion HFA aerosol inhaler Inhale 2 puffs twice a day by inhalati on route. active Not Available Not Available No t Available Vitamin D3 50 mcg (2,000 unit) capsule TAKE 1 CAPSULE( S) EVERY DAY BY ORAL ROUTE FOR 30 DAYS. active Not Available Not Available No t Available Vitals Date Recorded Body height Provider Name an d Address Organization Details Last Updated DateTime 08/15/2016 160.02 cm [facility] 15:13:48 Date Recorded Body weight Body mass index (BMI) Provider Name and Address Organization Details Last Updated DateTime 08/15/2016 91366.7 g 27.8 kg/m2 Catalina Koenig LPN [facility] 08/15/2016 15:13:56 Date Recorded Heart rate Provider Name an d Address Organization Details Last Updated DateTime 08/15/2016 92 /min Catalina Koenig [facility] 08/15/2016 15:16:12 Date Recorded Body height Provider Name an d Address Organization Details Last Updated DateTime 02/21/2017 160.02 cm Shabana Ken [facility] 02/21/2017 10:13:54 Date Recorded Body mass index (BMI) Body weight Provider Name and Address Organization Details Last Updated DateTime 02/21/2017 28.7 kg/m2 71692.36 g Shabana Ken LPN [facility] 02/21/2017 10:14:01 Date Recorded Heart rate Provider Name an d Address Organization Details Last Updated DateTime 02/21/2017 72 /min Shabana Ken [facility] 02/21/2017 10:15:07 Date Recorded Body height Provider Name an d Address Organization Details Last Updated DateTime 05/20/2015 160.02 cm Sudha Camarena [facility] 05/20/2015 13:44:38 Date Recorded Body weight Body mass index (BMI) Provider Name and Address Organization Details Last Updated DateTime 05/20/2015 95567.17115 g 24.6 kg/m2 Sudha Camarena [facility] 05/20/2015 13:46:43 Date Recorded Body temperature Heart rate Oxygen saturation Oxygen saturation in Arterial blood by Pulse oximetry Systolic blood pressure Diastolic blood pressure Provider Name and Address Organization Details Last Updated DateTime 99 [degF] 92 /min 98 % 98 % 92 mm[Hg] 58 mm[Hg] Sudha Camarena [facility] 13:55:06 Date Recorded Body height Body weight Body mass index (BMI) Heart rate Systolic blood pressure Diastolic blood pressure Provider Name and Address Organization Details Last Updated DateTime 6 160.02 cm 64385.9 87393 g 27.3 kg/m2 72 /min 104 mm[Hg] 70 mm[Hg] Catalina Koenig [facility] 08:32:21 Date Recorded Body height Provider Name an d Address Organization Details Last Updated DateTime 02/16/[address] [facility] 02/16/2016 16:03:31 Date Recorded Body weight Body mass index (BMI) Provider Name and Address Organization Details Last Updated DateTime 02/16/2016 85560.33 g 27.1 kg/m2 [facility] 02/16/2016 16:03:38 Date Recorded Heart rate Provider Name an d Address Organization Details Last Updated DateTime 02/16/2016 72 /min [facility] 02/16/2016 16:04:10 Date Recorded Systolic blood pressure Diastolic blood pressure Provider Name and Address Organization Details Last Updated DateTime 08/15/2016 108 mm[Hg] 60 mm[Hg] Catalina Koenig [facility] 08/15/2016 15:17:20 Date Recorded Systolic blood pressure Diastolic blood pressure Provider Name and Address Organization Details Last Updated DateTime 02/21/2017 92 mm[Hg] 62 mm[Hg] Shabana Ken LPN [facility] 02/21/2017 10:16:16 Date Recorded Systolic blood pressure Diastolic blood pressure Provider Name and Address Organization Details Last Updated DateTime 02/16/2016 108 mm[Hg] 68 mm[Hg] Renita Lechuga [facility] 02/16/2016 16:05:56 Social History Question Answer Notes LastModified by Organizat ion Details LastModified Time Tobacco Smoking Status Former Smoker smoked 1 pack in her lifetime Delia Ruffin Gaffney [address] [place] [address], [address], [facility] 12/04/2011 14:39:18 What Is Your Level Of Alcohol Consumption? Occasional Information not available 12/08/2014 What Is Your Level Of Caffeine Consumption? Occasional [email or web address] Information not available 03/08/2011 How Much Tobacco Do You Chew? None [email or web address] Information not available 03/08/2011 What Type Of Diet Are You Following? SPECIFIC Ovalactopesc atarian-Fish Information not available 12/08/2014 Education 12 Looking For Work Information not available 12/04/2011 When Did You Quit Smoking? 1-5yearssince lastcigarette Information not available 12/08/2014 How Many Days In The Past Year Have You Had A Heavy Drinking Consumption (4+ Female, 5+ Male)? 0 Information not available 12/08/2014 Are There Any Guns Present In Your Home? No Information not available 12/08/2014 Live Alone Or With Others? With Others With Mother And Brother (20 Year Old) And Child Information not available 12/04/2011 Does The Patient Have Difficulty Speaking Dominican? No Information not available 12/08/2014 Does The Patient Have Difficulty Reading Dominican? No Information not available 12/08/2014 Marital Status Single Information not available 03/08/2011 Mosquito Repellent Used Routinely Yes Information not available 12/08/2014 What Was The Date Of Your Most Recent Tobacco Screening? 02/21/2017 Information not available 11/12/2018 How Many Children Do You Have? 1 Sherif (11/11/12) Initially In NICU (child Support From Dad) Information not available 12/04/2012 What Is Your Current Pack Years? 10packyears Information not available 12/08/2014 Seat Belts Used Routinely Yes [email or web address] Information not available 03/08/2011 Are You Sexually Active? Yes [email or web address] Information not available 03/08/2011 Smoke Alarm In Home Yes [email or web address] Information not available 03/08/2011 What Types Of Sporting Activities Do You Participate In? Works Out Information not available 12/08/2014 General Stress Level Medium [email or web address] Information not available 03/08/2011 Do You Use Sunscreen Routinely? Yes [email or web address] Information not available 03/08/2011 Sex: Unknown Functional Status None recorded. Mental Status None recorded. Family History Relationship Description Onset Age of this Age Resolved Age Notes LastModified by Organization Details LastModified Time Mother Hypertensive disorder Not available 2015 14:37:40 Mother Hyperlipidem ia Not available 2015 14:37:40 Mother Diabetes mellitus Not available 2015 14:37:40 Mother Cholecystect ling Not available 2015 14:37:40 Father Disorder of pulmonary circulation 40 Not available 04/23 14:37:40 Father Myocardial infarction in the settin g of a PE Not available 05/20/2015 14:37:40 Paternal Uncle Pulmonary embolism Factor V Leiden Not available 05/20/2015 14:37:40 Notes:Family hx of DM No can cers Medical History Condition Response HEMATOLOGIC Y eczema Y Gynecological History Statement/Question Response Menses Monthly N History of Abnormal Pap N Current Control Method IUD Age at Menarche 11 Obstetrics History GPAL:G 0 P 0 0 0 0 Immunizations Vaccine Type Date Status Note Provider Nam e and Address Organization Details Recorded Time influenza, seasonal, intradermal, preservative free 3 completed Not Available [facility] 05/09/2019 02:19:02 Influenza, split virus, trivalent, PF 4 completed Not Available [facility] 05/09/2019 02:19:22 Influenza, split virus, quadrivalent, PF 5 completed Not Available [facility] 05/09/2019 02:19:46 [facility] 10:03:28 DTP 5 [facility]2012 10:03:28 Td (adult) 2 [facility]/17[facility]2012 10:03:28 Hep B, unspecified formulation 2 [facility] 03/17/2012 10:03:28 Hep B, unspecified formulation 3 [facility] 03/17/2012 10:03:28 HPV, unspecified formulation 8 [facility] 03/17/2012 10:03:28 DTP 0 [facility] 03/17/2012 10:03:28 DTP 0 [facility] 03/17/2012 10:03:28 Hep B, unspecified formulation 2 [facility] 03/17/2012 10:03:28 OPV 5 [facility] 03/17/2012 10:03:28 OPV 0 [facility] 03/17/2012 10:03:28 Hib, unspecified formulation 1 [facility] 03/17/2012 10:03:28 varicella 8 completed [facility] 10:03:28 OPV 1 completed MARLENE Walker [facility] 03/17/2012 10:03:28 MMR 1 [facility]2012 10:03:28 DTP 1 completed [facility] 03/17/2012 10:03:28 Tdap 8 completed [facility] 03/17/2012 10:03:28 meningococcal ACWY, unspecified formulation 8 completed [facility] 03/17/2012 10:03:28 DTP 0 completed [facility]/17/2012 10:03:28 varicella 8 completed [facility] 03/17/2012 10:03:28 MMR 5 completed [facility]/17[facility]2012 10:03:28 Influenza, split virus, quadrivalent, PF 6 completed Not Available [facility] 05/09/2019 02:21:05 pneumococcal polysaccharide PPV23 6 completed Not Available [facility] 05/09/2019 02:36:28 Influenza, split virus, quadrivalent, PF 7 completed Not Available [facility] 05/09/2019 02:22:07 Past Encounters Encounter ID Performer Location Encounter Start Date Encounter Closed Date Diagnosis/Indication Diagnosis SNOMED-CT Code Diagnosis ICD10 Code Diagnosis Note [id number] [facility], OFFICE [address] [place] [address] 10/10/2010 10:23:48 10/10/2010 11:20:03 [id number] [facility], OFFICE [address] [place] [id number] 6 12/04/2011 13:55:57 12/04/2011 15:20:33 [id number] June Ortega [facility], OFFICE [address] [place] [id number] 6 01/04/2012 10:08:37 01/04/2012 11:24:58 [id number] ERIBERTO Merino , [facility], OFFICE [address] [place] [phone] 6 02/07/2012 13:52:28 02/07/2012 14:26:06 [id number] Amna Staley LPN , [facility], OFFICE [address] [place] [address] 03/03/2012 14:35:18 03/03/2012 15:56:52 [id number] Italo Avila MD Radiology , [facility] [address] [place] [address] 03/03/2012 15:05:15 03/03/2012 15:54:52 [id number] Kenney Hawkins , [facility], OFFICE [address] [place] [address] [id number] 6 04/01/2012 08:53:31 04/01/2012 09:58:24 [id number] Sudha Romero MA , [facility], OFFICE [address] [place] [id number] 6 12/04/2012 14:52:40 12/04/2012 16:00:11 Adult health examination [id number] see Risk Assessment and Lifestyle Change Counseling section above Counseling [id number] Lawanda Garcia , [facility], OFFICE [address] [place] [address] [id number] 6 01/12/2013 09:25:09 01/12/2013 10:02:53 Tendinitis of wrist 120757658 Recommend icing wrists when at rest (up to 15 minutes at a time). Recommend wearing wrist braces at night or when resting. Recommend ibuprofen 600mg up to 3x daily with food for the next few weeks to help with inflammati on. If not improving in 4-6 weeks (end of Jan/beginn ing of Feb) pt is to call for OT referral for carpal tunnel/ten osynovitis of thumb. [id number] Tri Beckwith CMA , [facility], OFFICE [address] [place] [address] [id number] 6 01/21/2013 06:52:22 01/21/2013 11:45:28 Influenza vaccine needed [id number] , [facility], OFFICE [address] [place] [phone] 6 12/08/2013 10:48:12 12/08/2013 11:34:18 Adult health examination 098017324 see Risk Assessment and Lifestyle Change Counseling section above Counseling [id number] Examinatio n for population survey 665342579 Gastroesop hageal reflux disease 329136274 Had discussion with pt about diet modificati on versus medication . Will trial diet modificati on first and plan on follow-up in 2 months to see how she's doing at that point in time. [id number] Marisela Eduardo , [facility], OFFICE [address] [place] [id number] 6 03/02/2014 14:41:22 03/02/2014 15:45:28 Allergic rhinitis 30096643 Gastroesop hageal reflux disease 031236655 Had discussion with pt about diet modificati on versus medication . Will trial diet modificati on first and plan on follow-up in 2 months to see how she's doing at that point in time. Eczema [id number] Tri Beckwith CMA , [facility], OFFICE [address] [place] [address] 03/05/2014 07:53:23 03/05/2014 14:33:12 Influenza vaccine needed 1076056419 [id number] Jaqueline Medina , [facility], OFFICE [address] [place] [address] 06/08/2014 13:38:20 06/08/2014 15:44:19 Gastroesophageal reflux disease 951812458 Pt is doing well with dietary modificati on and using zantac prophylact ically. Eczema 24483001 Well controlled . Asthma 546420507 Trigger ed by allergies To continue with inhaler as needed [id number] , [facility], OFFICE [address] [place] [id number] 6 12/08/2014 13:40:43 12/08/2014 14:36:21 Venereal disease screening 846057064 Adult [facility] th examination 806240472 see Risk Assessment and Lifestyle Change Counseling section above Counseling 815125209 Influenza vaccine needed 5081331707 106 Cellulitis 981851149 Lily y mild on L elbow; question if underlying bursitis. Recommend cephalexin x7 days with follow-up to see how that is looking in a week. Olecranon bursitis 648771561 Recommenda tion as below. [id number] Elena Babin , [facility], OFFICE [address] [place] [id number] 6 12/15/2014 10:21:13 12/15/2014 11:41:49 Cellulitis 081174768 Very mild on L elbow; question if underlying bursitis. Much better, but not completely resolved. Will extend cephalexin x3 days, then have her stop that. Olecranon bursitis 258194072 Some appreciabl e swelling still; will have her take naproxen twice daily with food. Will also have her take ranitidine [id number] Delia Gaffney , [facility], OFFICE [address] [place] [id number] 6 03/31/2015 12:18:41 03/31/2015 13:29:27 Asthma 336449481 J45.909 Triggered by allergies To continue with inhaler as needed [id number] Jennie Gomez , [facility], OFFICE [address] [place] [id number] 6 05/02/2015 13:47:29 05/02/2015 14:13:54 Asthma 262511511 J45.909 To continue on symbicort given improvemen t in symptoms and plan on follow-up in 3-4 months to see how she is feeling. If any changes in the meantime, can follow-up sooner. [id number] Anne Gregory MD FP, [facility], OFFICE [address] [place] [phone] 6 05/13/2015 08:01:56 05/13/2015 08:37:14 Exacerbation of persistent asthma 165443843 J45.41 [id number] Patricia Angel NP , [facility], OFFICE [address] [place] [id number] 6 05/20/2015 13:35:23 05/20/2015 14:05:23 Asthma 641866977 J45.30 PERSISTENT (Mild/Mod/ Severe) Based on history, physical assessment and peak flow the patient's asthma in Not in control. See orders for adjustment in plan. The asthma action plan has been discussed. The patient verbalizes understand ing of medication use. The patient is in agreement with this plan Counseling 263028691 Z71 .9 Abdominal pain 78986515 R10.9 Constipation 13684915 K5 9.00 [id number] Jennie WHARTON, [facility], OFFICE [address] [place] [id number] 6 08/02/2015 08:24:00 08/02/2015 08:42:11 Asthma 199432877 J45.909 To continue on symbicort given improvemen t in symptoms. Given the season, will try sending a script for gypsy, if insurance won't pay for script will have patient just pay out of pocket for OTC version. [id number] Delia WHARTON, [facility], OFFICE [address] [place] [address] [id number] 6 02/16/2016 15:43:25 02/16/2016 16:42:01 Adult health examination 915258299 Z00.00 see Risk Assessment and Lifestyle Change Counseling section above Counseling 383663116 Z71 .9 Active or passive immunization 567362587 Z23 Asthma 495662530 J45.90 9 To continue with medication s with follow-up in 6 months, sooner if symptoms worsen in the meantime. Eczema 85796711 L30.9 Well controlled . [id number] Delia WHARTON, [facility], OFFICE [address] [place] [id number] 6 08/15/2016 14:35:46 08/15/2016 15:34:55 Fatigue 46990364 R53.83 Will check labwork and start on vitamin D3. Asthma 321380866 J45.90 9 To continue with medication s with follow-up in 6 months with wellness visit, sooner if symptoms worsen in the meantime. Eczema 76408956 L30.9 Well controlled . [id number] HUNTER Crockett, [facility], OFFICE [address] [place] [id number] 6 02/21/2017 10:07:02 02/21/2017 10:42:11 Active or passive immunization 084261979 Z23 updated. Gastroesop hageal reflux disease 157469476 K21.0 -GI referral placed-sta rt omeprazole as directed-f inish carafate-w atch your diet, caffeine, and carbonated drinks. Health Concerns Section Related Observation LastModified by Organization Detai ls LastModified Time None Recorded Concern Status LastModified by Organization Details LastModified Time None Recorded Advance Directives Directive None Recorded Payers Encounter Date Sequence Insurance Name Policy Number Policy Vides Covered Member ID Vides Member ID Guarantor Name 05/20/2015 1 [facility] [employer] (MEDICAID HMO) Lorri Silvestre [id number] 1 Lorri Silvestre 08/02/2015 1 [facility] [employer] (MEDICAID HMO) Lorri Silvestre [id number] Lorri Silvestre 02/16/2016 1 [facility] [employer] (MEDICAID HMO) Lorri Silvestre [id number] Lorri Silvestre 08/15/2016 1 [facility] [employer] (MEDICAID HMO) Lorri Silvestre [id number] Lorri Silvestre 02/21/2017 1 [facility] [employer] (MEDICAID HMO) Lorri Silvestre [id number] Lorri Silvestre Notes Date Note Type Note Provider Name and Address Organization Details Recorded Time 05/20/2015 text/html Breathing is muc h better. Prednisone helped and is now using Symbicort. Went to for abdominal pain. Poorly described as to location. Treated with zantac and dietary restrictions and has not recured. Told she might have GB dz. No testing done. Her mother had GB out. Otherwise no risk factors. Has mild constipation. Patricia Angel, NOEL [address] [place] [address], [phone], [facility] 05/20/2015 14:38:03 08/02/2015 text/html a/VMG-AsthmaRepo rted bypatient.Duration:d iagnosed within last year Severity/Intensity/F requency of Symptoms:Intermitten t asthma with symptoms less than 2 days per week Compliance:compliant with rescue medications; compliant with maintenance medications Self Care:has asthma action plan; has peak flow meter; has aerochamber Associated Symptoms:no fever; no fatigue; no irritability; no cough; normal appetite; no changes in productivityNotes:Pt has a hx of asthma as a child. She feels flovent never worked and insurance wouldn't pay for advair. She is now on symbicort and peak flows in the upper 400's today. Predicted peak flow 385. Personal best 590 (?) or at least in the mid 400's, which is better than expected. Delia Gaffney [address] [place] [address], [phone], [facility] 08/02/2015 08:41:47 02/16/2016 text/html Physical Exam/FemaleReported bypatient.PHAPatient is here for a Personal Health Appraisal. She describes her health status as good. Patient's health is the same as last year.Risk Assessment and Lifestyle Change Counseling 18-50Reported bypatient.Coronary Artery Disease Risk Assesment:No Family history of coronary artery disease; No personal history of diabetes; No history of peripheral vascular disease, AAA, or carotid disease; No personal history of coronary artery disease Breast Cancer Risk Assessment:No family history of breast cancer; No history of breast cancer or dcis Lung Cancer Risk Assessment:Never smoked; No asbestos exposure Cognitive/Behavioral Risk Assessment:No personal history of mental illness; No family history of mental illness Safety Risk Assessment:No evidence of abuse/neglect Diet:Counseled about appropriate portion size; Counseled about eating a diet low in trans and saturated fats and high in fiber, fruits and vegetables Exercise counseling:Discussed the importance of daily physical activity Family Planning:Using control IUD (Mirena 2012)[facility] AsthmaReported bypatient.Duration:d iagnosed within last year Severity/Intensity/F requency of Symptoms:Intermitten t asthma with symptoms less than 2 days per week Compliance:compliant with rescue medications; compliant with maintenance medications Self Care:has asthma action plan; has peak flow meter; has aerochamber Associated Symptoms:no fever; no fatigue; no irritability; no cough; normal appetite; no changes in productivityNotes:Pt has a hx of asthma as a child. She feels flovent never worked and insurance wouldn't pay for advair. She is now on symbicort and peak flows in the upper 400's on that. Predicted peak flow 385. Personal best 590 (?) or at least in the mid 400's, which is better than expected. Delia Gaffney [address] [place], [phone], [facility] 02/16/2016 16:40:31 08/15/2016 text/html Pt also c/o fati ok and achiness. Pt states that normally she feels lousy in the winter 'cold and damp' in the winter. Normally she feels more 'peppy' this time of year. She denies specific joint pain, she just feel sore. She denies tickbite. She gets about 6-8 hours of sleep a night, but sometimes it's closer to 6 than 8. She currently has Mirena which keeps her from having heavy periods. No worsening constipation, has been having some trouble losing weight. Delia Gaffney [address] [place], [phone], [facility] 08/15/2016 15:35:47 08/15/2016 text/html [facility] AsthmaReport ed bypatient.Duration:d iagnosed within last year Severity/Intensity/F requency of Symptoms:Intermitten t asthma with symptoms less than 2 days per week Compliance:compliant with rescue medications; compliant with maintenance medications Self Care:has asthma action plan; has peak flow meter; has aerochamber Associated Symptoms:no fever; no fatigue; no irritability; no cough; normal appetite; no changes in productivityNotes:Pt has a hx of asthma as a child. She feels flovent never worked and insurance wouldn't pay for advair. She is now on symbicort and peak flows in the upper 400's on that. Predicted peak flow 385. Personal best 590 (?) or at least in the mid 400's, which is better than expected. Delia Gaffney [address] [place], [phone], [facility] 08/15/2016 15:35:47 02/21/2017 text/html Patient presents today for follow up from the ER. She has a history of GERD had not had a problem until Saturday. Started Zantac over the counter twice per day this didn;t help. On Saturday felt like she was having a heart attack went to the ER tests were negative. Given carafate prescription. She was instructed to follow up with GI but needs a referral. SHe has never had an upper GI. Lamar Blackmon, HUNTER [address] [place] [address], [phone], [facility] 02/21/2017 14:12:12 OBGyn Episode No OBEpisode recorded.
--- OUTSIDE RECORDS SUMMARY | 2024-05-15 15:08 | XMS_ITS | Clinical Summary ---
Author Organization [facility] Address [address] [place] [address] Phone Care Team Providers Care Burglary Investigator Name Role Phone Jaky Ely MD Primary Care Provider [phone] Immunizations Name Administration Dates Next Due DTP 06/19/1994, 1,1989,10/19,1989 HPV, Quadrivalent 11/12/2007 Hep B, ped/adol 04/27/2002,11/04/2001,09/19/2001 Hib (PRP-T) 09/19/1990 IPV 06/19/1994, 1,1989,08/19 MMR 06/12/1994,09/19/1990 Meningococcal Conj (Menactra) MCV4P 11/12/2007 Td (adult) (MBL), 2 Lf tetan us toxoid, PF, adsorbed 09/19/2001 Tdap 11/12/2007 Varicella 11/12/2007,01/05/1998 Family History Relation Name Status Comments Brother Alive Brother: Alive and well Father Father: Sudden /[place] under age 55, Maternal Grandmother Materna l grandmother: Diabetes mellitus, Stroke Mother Alive Mother: Alive a nd well Paternal Grandfather Paterna l grandfather: Diabetes mellitus Paternal Grandmother Alive Paterna l grandmother: Diabetes mellitus Social History Tobacco Use Types Packs/Day Years Used Date Smoking Tobacco: Never Assessed Comments Unknown Sex and Gender Information Value Date Recorded Sex Assigned at Not on file Legal Sex Female 4:40 PM EDT Gender Identity Not on file Sexual Orientation Not on file Plan of Treatment Health Maintenance Due Date Last Done Comments HPV Vaccines (2 - 3-dose series) 12/10/2007 11/12/2007 DTaP,Tdap,and Td Vaccines (7 - Td or Tdap) 11/11/2017 11/12/2007, 09/19/2001, 06/19/1994, Additional history exists Influenza Vaccines (#1) 2023 COVID-19 Vaccine ( - 2023- season) 2023 HIB Vaccines Completed 09/19/1990 MMR Vaccines Completed 06/12/1994, 09/19/1990 IPV Vaccines Completed 06/19/1994, 11/22, 1989, Additional history exists Hepatitis B Vaccines Completed 04/27/2002, 11/04/2001, 09/19/2001 Meningococcal Vaccine Completed 11/12/2007 Varicella Vaccines Completed 11/12/2007, 01/05/1998 Hepatitis A Vaccines Aged Out No long er eligible based on patient's age to complete this topic Men B Vaccine Aged Out No longer elig ible based on patient's age to complete this topic Pneumococcal Vaccine Aged Out No long er eligible based on patient's age to complete this topic Care Teams Burglary Investigator Relationship Specialty Start Date End Date Jaky Ely MD [address] [facility] [place] [id number] PCP - General 11/30/16
== END 2024-05-15 14:15 | disposition home or self-care (01) ==
DX: J45.909 Unspecified asthma, uncomplicated (principal); F32.A Depression, unspecified; E66.9 Obesity, unspecified; Z68.39 Body mass index [BMI] 39.0-39.9, adult; F41.9 Anxiety disorder, unspecified

== ENCOUNTER → 2024-05-15 13:25 | Outpatient (BNVA) | payer OTHER, SELFPAY | DX: J45.909 Unspecified asthma, uncomplicated (principal); F32.A Depression, unspecified; F41.9 Anxiety disorder, unspecified; E66.9 Obesity, unspecified | CPT/HCPCS: 96127; 99202 ==

== ENCOUNTER 2024-05-16 08:33 | Outpatient (REF) | payer OTHER, SELFPAY ==
--- OUTSIDE RECORDS SUMMARY | 2024-05-16 08:35 | XMS_ITS | Encounter Summary ---
Author Organization [facility] Address [address] [place] [address] Phone Care Team Providers Care Complex Care Nurse Name Role Phone Jaky Ely MD Primary Care Provider [phone] Encounter Details Date Type Department Care Team (Late st Contact Info) Description 11/30/2011 Documentation [facility] Family Medicine [address] [place], [place] [phone] Family Medicine, Physician [address] [place], [place] [phone] Social History Tobacco Use Types Packs/Day Years [...] on filedocumented in this encounter Care Teams Complex Care Nurse Relationship Specialty Start Date End Date Jaky Ely MD [address] [place] [address] [place] [id number] PCP - General 11/30/16 documented as of this encounter
--- OUTSIDE RECORDS SUMMARY | 2024-05-16 08:35 | XMS_ITS | Clinical Summary ---
Author Organization [facility] Address [address] [place] [address] Phone Care Team Providers Care Hadoop Software Engineer Name Role Phone Jaky Ely MD Primary Care Provider [phone] Immunizations Name Administration Dates Next Due DTP 06/19/1994, 1,1989,10/19,1989 HPV, Quadrivalent 11/12/2007 Hep B, ped/adol 04/27/2002,11/04/2001,09/19/2001 Hib (PRP-T) 09/19/1990 IPV 06/19/1994, 1,1989,08/19 MMR 06/12/1994,09/19/1990 Meningococcal Conj (Menactra) MCV4P 11/12/2007 Td (adult) (MBL), 2 Lf tetan us toxoid, PF, adsorbed 09/19/2001 Tdap 11/12/2007 Varicella 11/12/2007,01/05/1998 Family History Relation Name Status Comments Brother Alive Brother: Alive and well Father Father: Sudden /[place] under age 55, Maternal Grandmother Materna l [...] age to complete this topic Care Teams Hadoop Software Engineer Relationship Specialty Start Date End Date Jaky Ely MD [address] [facility] [place] [phone] PCP - General 11/30/16
[2024-05-16 08:42] LABS: MANUAL DIFF FLAG NO
[2024-05-16 09:10] LABS: Basophils Absolute Auto 0.1 X10*3/uL (0.0-0.2); Basophils Percent Auto 0.9 % (0-2); Eosinophils Absolute Auto 0.2 X10*3/uL (0.0-0.4); Eosinophils Percent Auto 3.4 % (0-4); Hematocrit 40.6 % (37.0-47.0); Hemoglobin 13.7 g/dl (12.0-16.0); Imm Gran Abs Auto 0.02 X10*3/uL (0.00-0.03); Imm Gran Pct Auto 0.3 % (0.0-0.4); Lymphocytes Absolute Auto 1.8 X10*3/uL (1.2-4.9); Lymphocytes Percent Auto 30.2 % (20-40); Mean Corpuscular HGB Conc 33.7 g/dl (31.0-35.0); Mean Corpuscular Hemoglobin 29.3 pg (27.0-33.0); Mean Corpuscular Volume 86.9 fL (80.0-98.0); Mean Platelet Volume 10.4 fL (9.4-12.3); Monocytes Absolute Auto 0.6 X10*3/uL (0.1-1.2); Monocytes Percent Auto 9.8 % (2-11); Neutrophils Absolute Auto 3.2 x10*3/uL (2.0-8.3); Neutrophils Percent Auto 55.4 % (45-73); Platelet Count 326 X10*3/uL (160-400); Red Blood Count 4.67 X10*6/uL (4.20-5.50); Red Cell Distribution Width 13.2 % (11.0-16.0); White Blood Count 5.8 X10*3/uL (4.8-10.8)
[2024-05-16 09:46] LABS: Alanine Aminotransferase 19 U/L (0-31); Albumin Level 4.3 g/dL (3.5-5.0); Alkaline Phosphatase 69 U/L (39-117); Anion Gap 8 (12-20); Aspartate Amino Transferase 19 U/L (5-31); Bilirubin Total 0.5 mg/dL (0.0-1.0); Blood Urea Nitrogen 9 mg/dL (9-16); Calcium 8.7 mg/dL (8.4-10.2); Carbon Dioxide 28 mmol/L (22-29); Chloride 107 mmol/L (96-108); Cholesterol 165 mg/dL (<200); Estimated Glomerular Filt Rate > 60; Glucose Random 90 mg/dL (60-115); HDL Cholesterol 43 mg/dL (>40); LDL Cholesterol Calculated 111 mg/dL (<100); Potassium 4.3 mmol/L (3.3-5.1); Sodium 139 mmol/L (135-145); Total Protein 7.5 g/dL (6.5-8.0); Triglycerides 59 mg/dL (<150)
[2024-05-16 10:03] LABS: TSH reflex Free T4 1.62 uIU/mL (0.32-4.0); Vitamin D 25-OH Total 26.7 ng/mL (>30)
[2024-05-16 10:15] LABS: Vitamin B12 727 pg/mL (200-900)
== END 2024-05-16 08:34 | disposition home or self-care (01) ==
LOC: HO.LAB 08:33
DX: Z00.00 Encounter for general adult medical examination without abnormal findings (principal); E78.00 Pure hypercholesterolemia, unspecified
CPT/HCPCS: 36415; 80053; 80061; 82306; 82607; 82746; 84443; 85025

== ENCOUNTER 2024-08-14 10:58 | Outpatient (AMB) | payer OTHER, SELFPAY ==
--- NOTE | 2024-08-14 11:03 | A.OFFPC_ITS ---
Vital Signs 08/14/24 11:04 Height 5 ft 2 in BMI Reason not done Patient refused/unable BP 120/70 Blood Pressure Location Lt brachial Position Sitting Pulse 86 Pulse Source Pulse Oximeter Temp 97.3 F Temp Source Temporal Artery Scan Pulse Oximetry (%) 97 Oxygen Delivery Method Room Air Intake Visit Reasons: annual exam Intake Note: Patient is here today for a physical. Silk Winding Machine Operator Required: No Print Cutter: Not Required per policy Accompanied by: Self / Same As Patient Allergies Sulfa (Sulfonamide Antibiotics) [SULFA (SULFONAMIDE ANTIBIOTICS)] Allergy (Intermediate, Verified 08/14/24 11:27) HIVES Medication List - Last Reconciled 08/14/24 by Enid Cox PA-C acetaminophen ER (Pain Relief (acetaminophen)) 650 mg PO Q8H albuterol sulfate 90 mcg/actuation 1 inh inhalation QID cholecalciferol (vitamin D3) 25 mcg PO DAILY clonidine HCl 0.1 mg PO TID magnesium 200 mg PO DAILY mecobalamin (vitamin B12) 500 mcg PO DAILY vit-iron fum-folic ac 28 mg iron- 800 mcg 1 tab PO DAILY sertraline 25 mg PO DAILY Tobacco use date assessed: 08/14/24 Dental Screening Dental Screen Date: 05/15/24 HPI annual exam HPI Details 34-year-old female with past medical his tory of obesity, asthma, anxiety, depression last seen 04/2024 coming in for annual exam. Patient has been seeing [facility] for mental health and recently started on clonidine and sertraline. She is seeing her counselor weekly and psychiatrist monthly. Eczema is present but improving, occurs sporadically, and anticipated to resolve naturally. Weight gain noted since 2019 due to multiple factors including mental health and possibly medications, working on weight management. Pap smear: Patient is having routine gynecological exam [place] [facility] [place] is up-to-date on Pap smear Vaccinations: Patient is up-to-date on all vaccines [facility] Medical History Asthma Surgical History Hx of tonsillectomy History of 2 sections Family History Father Substance use disorder Other Factor V Leiden Family history of cardiac disorder Family history of diabetes mellitus Social History Housing: Apartment Alcohol intake: current Alcohol intake frequency: a few times a month Patient Tobacco Use Status: Never used Tobacco e-Cigarette/Vaping Use: Never Used Second Hand Smoke Exposure: No service: No Current occupational status: unemployed Cognitive needs: No Hearing needs: No Vision needs: Yes (Glasses) Female Reproductive History Menstrual control method: progestin IUCD Total pregnancies: 2 History of abnormal pap smear: Yes Questionnaire Thrive Questionnaire Date Thrive assessed: 05/15/24 I am a: Patient What is your living situation today?: I have a steady place to live Within the past 12 months, did the food you bought not last and you didn't have the money to get more?: Never true Within the past 12 months, did you worry whether your food would run out before you got money to buy more?: Never true Do you have trouble paying for medicines?: No Do you have trouble getting transportation to medical appointments?: No Do you have trouble paying your heating and electricity bill?: No Do you have trouble taking care of your child, family member or friend?: No Do you have trouble with day-to-day activities such as bathing, preparing meals, shopping, managing finances, etc.?: I choose not to answer this question Are you currently unemployed and looking for a job?: Yes Are you interested in more education?: I choose not to answer this question Please select the resources that you would like help with: Childcare Currently or been in a relationship where the following occur: I choose not to answer THRIVE Score: 0 ANTONIA-7 AMB Questionnaire ANTONIA-7 Date ANTONIA - 7 assessed: 05/15/24 Source: Developed by Drs. Rebel Campos, Bettye Tracey, Wallace Murdock and colleagues, with an educational shawna from [employer]. Review of Systems Const Denies body aches, Denies fatigue, Denies fever(s), Denies frequent falls, Denies headache(s) and Denies weakness Eyes Reports no additional complaints and Denies change in vision ENT Denies dysphagia, Denies dizziness, Denies facial pain, Denies headache(s), Denies nasal congestion and Denies odynophagia Card Denies chest pain, Denies syncope, Denies irregular heart rhythm, Denies leg edema, Denies lightheadedness and Denies dyspnea Resp Denies cough and Denies dyspnea GI Denies abdominal pain, Denies constipation, Denies dysphagia, Denies dyspepsia, Denies diarrhea, Denies nausea, Denies odynophagia and Denies vomiting Denies urinary frequency, Denies dysuria, Denies urinary hesitancy and Denies urinary urgency Musc Denies back pain and Denies myalgias Skin/Breast Reports system reviewed and no additional complaints, except as documented Neuro Denies dizziness, Denies syncope, Denies frequent falls, Denies headache(s) and Denies weakness Psych Reports no additional complaints Endo Denies fatigue Physical exam (Primary Care) Vital Signs: Last Vital Signs Temp 97.3 F 08/14/24 11:04 Pulse 86 08/14/24 11:04 BP 120/70 08/14/24 11:04 Pulse Ox 97 08/14/24 11:04 Oxygen Delivery Method Room Air 08/14/24 11:04 Tobacco/Smoking Status: Tobacco use Status Tobacco use date assessed 08/14/24 08/14/24 11:10 Patient Tobacco Use Status Never used Tobacco 08/14/24 11:10 e-Cigarette/Vaping Use Never Used 08/14/24 11:10 Thrive Assessment: Date of Thrive Assessment Date Thrive assessed 05/15/24 08/14/24 11:10 Currently or been in a relationship where the following occur: I choose not to answer Const General: cooperative, healthy appearing, comfortable and no acute distress Orientation/consciousness: patient oriented x3 [facility] Head: Yes normocephalic Ears: hearing grossly normal bilaterally, external ears normal, TM's normal bilaterally and EAC's normal General nose exam: Normal external nose present Face and sinus: Yes normal facial exam and Yes sinuses nontender Mouth: Normal oral and palatal mucosa present and tongue normal Throat: Yes posterior oropharynx normal Eyes General: appearance normal, both eyes and all related structures Conjunctivae: conjunctivae normal Pupils: Equal, round and reactive pupils present EOM: EOMs intact bilaterally and No Nystagmus present Neck Neck: Yes normal visual inspection, Yes full ROM and Yes no lymphadenopathy Chest Chest palpation & inspection: normal inspection of the chest Resp Effort & Inspection: normal respiratory effort Auscultation: clear to auscultation bilaterally, no crackles, no rales, no rhonchi, no wheezes and breath sounds present Cardio Rate: regular rate Rhythm: regular rhythm Peripheral pulses: radial pulses present and dorsalis pedis present GI Inspection: Yes normal to inspection and No Abdominal wall edema Palpation (GI): Soft to palpation, not firm and nontender Auscultation: normal bowel sounds Rectal Exam - Female: deferred General: Yes no CVA tenderness Back/Spine/Pelvis Back: no CVA tenderness Skin General skin exam: no rashes or lesions noted Neuro General: patient oriented x3 Cranial nerves: Yes Equal, round and reactive pupils present, Yes Midline tongue present, Yes Ability to bilaterally elevate shoulders present and No Nystagmus present Gait exam (Neuro): Normal gait present Extrem General: Yes normal to inspection, Yes full ROM, No no pedal edema and No edema Psych Speech and movement: Normal speech and movement present Affect: normal affect Insight: Good insight present (Psych) Judgement: Good judgement present (Psych) Coding Level of Care Code Est Pt Prev Care 18-39y(14269) Diagnoses Obesity E66.9 Depression F32.A Anxiety F41.9 Asthma J45.909 Annual physical exam Z00.00 Eczema L30.9 Assessment & Plan Assessment & Plan (1) Obesity: Code(s): E66.9 - Obesity, unspecified Category: Medical Plan: Healthy diet and regular exercise is encouraged. (2) Depression: Code(s): F32.A - Depression, unspecified Category: Medical Plan: Patient currently following with Psychiatry on sertraline and clonidine and feeling on these medications. Continue to follow with psychiatry (3) Anxiety: Comment: [facility] - therapist weekly and psychiatrist monthly Code(s): F41.9 - Anxiety disorder, unspecified Category: Medical Plan: Patient currently following with mental health on sertraline and clonidine feeling while on this medication. Continue to follow psychiatry (4) Asthma: Code(s): J45.909 - Unspecified asthma, uncomplicated Category: Medical Plan: Asthma currently controlled on present medications. Continue on Breo daily and albuterol as needed.? Avoid triggers such as allergies. (5) Annual physical exam: Code(s): Z00.00 - Encounter for general adult medical examination without abnormal findings Category: Medical (6) Eczema: Code(s): L30.9 - Dermatitis, unspecified Category: Medical Plan: Patient having intermittent eczema managed conservatively with topical creams. Plan We will continue current management strategies for generalized anxiety disorder and depression, monitoring clonidine usage and advising on possible lightheadedness or dizziness during positional changes. The patient is encoura ged to engage regularly with her therapist and maintain her mental health stability. Monitoring for asthma should persist without any changes. Supplementation for vitamin D deficiency remains, supporting past deficiencies. She will be briefed on methods to address weight management, adopting healthier dietary strategies and improved physical activity. Improvement observed in eczema without additional treatment for now. Her past history of poor liver function seems resolved with lifestyle adjustments, including moderating alcohol intake. We will periodically review her results over the course of wellness visits. This note was constructed using voice recognition software. While every effort has been made to ensure accuracy and cv/cvn cv tsc system operator, still areas may have been included sometimes these areas may affect the content or meeting of the given symptoms. Total time spent caring for the patient today was 30 minutes. This includes time spent before the visit reviewing the chart, time spent during the visit, and time spent after the visit and documentation. Patient was informed and verbally consented to the use of an ambient scribe for clinic note documentation during this visit. Medications: New fluticasone furoate-vilanterol 100-25 mcg/dose (Breo Ellipta) 1 inh inhalation DAILY 60 ea 1RF
[2024-08-14 11:04] VITALS: BP 120/70; PULSE 86; TEMP 36.3; O2SAT 97
--- OUTSIDE RECORDS SUMMARY | 2024-08-14 11:46 | XMS_ITS | Encounter Summary ---
Author Organization [facility] Address [address] [place] [address] Phone Care Team Providers Care Exercise Planner Name Role Phone Jaky Ely MD Primary Care Provider [phone] Encounter Details Date Type Department Care Team (Late st Contact Info) Description 12/06/2016 Conversion Encounter [facility] [place] [address] [place] [address] Social History Tobacco Use Types Packs/Day Years [...] on filedocumented in this encounter Care Teams Exercise Planner Relationship Specialty Start Date End Date Jaky Ely MD [address] [place] [address] PCP - General 11/30/16 documented as of this encounter
--- OUTSIDE RECORDS SUMMARY | 2024-08-14 11:46 | XMS_ITS | Clinical Summary ---
Author Organization [facility] Address [address] [place] [phone] Phone Care Team Providers Care Metal Punch Press Operator Name Role Phone Jaky Ely MD Primary Care Provider [phone] Immunizations Immunization Administration Dates Next Due DTP 06/19/1994, 1,1989,10/19,1989 HPV, Quadrivalent 11/12/2007 Hep B, ped/adol 04/27/2002,11/04/2001,09/19/2001 Hib (PRP-T) 09/19/1990 IPV 06/19/1994, 1,1989,08/19 MMR 06/12/1994,09/19/1990 Meningococcal Conj (Menactra) MCV4P 11/12/2007 Td (adult) (MBL), 2 Lf tetan us toxoid, PF, adsorbed 09/19/2001 Tdap 11/12/2007 Varicella 11/12/2007,01/05/1998 Family History Relation Name Status Comments Brother Alive Brother: Alive and well Father Father: Sudden /[place] under age 55, Maternal Grandmother Materna l [...] age to complete this topic Care Teams Metal Punch Press Operator Relationship Specialty Start Date End Date Jaky Ely MD [address] [facility] [place] [phone] PCP - General 11/30/16
--- OUTSIDE RECORDS SUMMARY | 2024-08-14 11:46 | XMS_ITS | Encounter Summary ---
Author Organization [facility] Address [address] [place] [phone] Phone Care Team Providers Care Lay Out Technician Name Role Phone Jaky Ely MD Primary Care Provider [phone] Encounter Details Date Type Department Care Team (Late st Contact Info) Description 11/30/2011 Documentation [facility] [place] [facility] [address] [place], [place] [id number] Family Medicine, Physician [address] [place], [place] [id number] Social History Tobacco Use Types Packs/Day Years [...] on filedocumented in this encounter Care Teams Lay Out Technician Relationship Specialty Start Date End Date Jaky Ely MD [address] [place] [address] [place] [phone] PCP - General 11/30/16 documented as of this encounter
== END 2024-08-14 11:46 | disposition home or self-care (01) ==
LOC: HO.HMCH 10:59
DX: Z00.00 Encounter for general adult medical examination without abnormal findings (principal); E66.9 Obesity, unspecified; F32.A Depression, unspecified; F41.9 Anxiety disorder, unspecified; J45.909 Unspecified asthma, uncomplicated; L30.9 Dermatitis, unspecified

== ENCOUNTER → 2024-08-14 10:58 | Outpatient (BNVA) | payer OTHER, SELFPAY | DX: Z00.00 Encounter for general adult medical examination without abnormal findings (principal); E66.9 Obesity, unspecified; F32.A Depression, unspecified; F41.9 Anxiety disorder, unspecified; J45.909 Unspecified asthma, uncomplicated; L30.9 Dermatitis, unspecified; Z79.899 Other long term (current) drug therapy | CPT/HCPCS: 99395 ==

== ENCOUNTER 2024-12-15 10:30 | Outpatient (AMB) | payer OTHER, SELFPAY ==
[2024-12-15 11:09] VITALS: BP 92/60; PULSE 66; TEMP 36.7; O2SAT 99; BMI 39.0
--- NOTE | 2024-12-15 11:09 | MHC.OFFWIV ---
Intake Vital Signs 12/15/24 11:09 Height 5 ft 2 in Weight 213 lb BMI 39.0 BP 92/60 Blood Pressure Location Lt brachial Position Sitting Pulse 66 Pulse Source Pulse Oximeter Temp 98.1 F Temp Source Oral Pulse Oximetry (%) 99 Oxygen Delivery Method Room Air Intake Visit Reasons: EP-Joint pain Intake Note: pt presents with joint ache flaring on right arm, hips, ankles Patient Tobacco Use Status: Never used Tobacco Allergies Sulfa (Sulfonamide Antibiotics) (SULFA (SULFONAMIDE ANTIBIOTICS)) Allergy (Intermediate, Verified 12/15/24 11:15) HIVES Do you need a note to return to daycare/school/sports/work: No HPI HPI Comments History of Present Illness Details This is a 34-year-old female with a past medical history of depression presenting for evaluation of chronic intermittent joint pain. Patient states over the past 12 years she has had ?flares? of joint pain and a history of cervical discopathy of unknown degree. Patient denies any injury or trauma preceding the onset of her symptoms which started on Saturday. Patient reports a dull and aching pain radiating throughout her right upper extremity-that she describes as a 7-8/10 in intensity. She denies having any back pain, left upper extremity pain, neck pain or pain in her lower extremities bilaterally. Patient has taken Tylenol this morning without relief of her discomfort. [facility] Medical History Asthma Surgical History Hx of tonsillectomy History of 2 sections Family History Father Substance use disorder Other Factor V Leiden Family history of cardiac disorder Family history of diabetes mellitus Social History Housing: Apartment Alcohol intake: current Alcohol intake frequency: a few times a month Patient Tobacco Use Status: Never used Tobacco e-Cigarette/Vaping Use: Never Used Second Hand Smoke Exposure: No service: No Current occupational status: unemployed Cognitive needs: No Hearing needs: No Vision needs: Yes (Glasses) Review of Systems Const All systems reviewed & are unremarkable except as noted in HPI and below Reports no additional complaints, Denies chills, Denies difficulty sleeping, Denies fatigue, Denies fever(s), Denies frequent falls, Denies lethargy and Denies weakness Eyes Reports no additional complaints ENT Reports no additional complaints, Denies dizziness and Denies neck pain Card Reports no additional complaints Resp Reports no additional complaints GI Reports no additional complaints Reports no additional complaints Musc Denies muscle cramps, Denies muscle weakness, Denies neck pain, Denies numbness, Reports radiating pain into limb (right upper extremity) and Denies tingling Skin/Breast Reports system reviewed and no additional complaints, except as documented Neuro Reports no additional complaints, Denies dizziness, Denies frequent falls, Denies numbness, Denies tingling and Denies weakness Psych Reports no additional complaints Endo Denies fatigue Aller/Immun Reports no additional complaints Physical Exam Vital Signs: Last Vital Signs Temp 98.1 F 12/15/24 11:09 Pulse 66 12/15/24 11:09 BP 92/60 12/15/24 11:09 Pulse Ox 99 12/15/24 11:09 Oxygen Delivery Method Room Air 12/15/24 11:09 BMI result Body Mass Index 39.0 Const General: cooperative, healthy appearing, comfortable, no acute distress, well developed, alert, awake and Physically active; No acute distress or ill appearing Nutritional Appearance: well nourished Orientation/consciousness: patient oriented x3 Limitations: no limitations Neck Neck: Yes normal visual inspection, Yes full ROM and Yes no meningeal signs Back/Spine/Pelvis Cervical Spine: normal cervical lordosis, cervical muscular tenderness (right), No cervical spasm, No Cervical spine tenderness and No step off deformity Thoracic/Lumbar Spine: thoracic and lumbar spine normal to inspection, paraspinal muscle tenderness on the right in the upper thoracic and No thoracic spinal tenderness Skin General skin exam: no rashes or lesions noted Wounds: no wounds Neuro General: patient oriented x3, gait normal, tone normal, moves all extremities, Normal light touch and pain sensation, no meningeal signs and no focal motor deficits Cognition (Neuro): normal cognition Motor exam (neuro): 5/5 motor strength present throughout (upper extremities bilaterally) Extrem Other: Family Court Registrar strength is equal bilaterally, patient is able to independently raise both arms overhead, 5/5 strength throughout upper extremities bilaterally, no pain to palpation of the clavicles bilaterally Right upper extremity: normal to inspection, full ROM, no joint enlargement, shoulder/upper arm Details: axillary nerve sensory function normal and normal ROM; no tenderness, no swelling and no deformity, elbow/forearm Details: normal to inspection and normal ROM; no tenderness and no swelling, wrist Details: normal to inspection and normal ROM; no tenderness and no swelling and Extremity exam: right hand Details: normal to inspection, abnormal to inspection, normal capillary refill, neuromotor exam normal, neurosensory exam normal and tendon exam normal; no edema Psych Appearance: grossly normal Mental Status: mental status grossly normal Insight: Good insight present (Psych) Judgement: Good judgement present (Psych) Assessment & Plan Assessment & Plan (1) Cervical radiculopathy: Comment: Patient is evaluated. She is neurologically intact and in no acute distress. Given this patient's history coupled with her examination, imaging of the cervical spine is deferred at this time. Patient will be discharged home with a prednisone taper and a referral for physical therapy consultation. Code(s): M54.12 - Radiculopathy, cervical region Plan: Prednisone 20 mg taper over 9 days, physical therapy consultation is pending at this time. Patient is encouraged to follow up with her primary care provider for ongoing management of her chronic pain. Orders: Orders PT Evaluation and Treatment Today M54.12 - Radiculopathy, cervical region Medications: New prednisone 20 mg orally 60mg x 3 days, 40mg x 3 days, 20mg x 3 days; 18 tabs 0RF Coding Level of Care Code Est Pt Level 3 (48558) Diagnoses Cervical radiculopathy M54.12 Time Spent (min) 20
--- OUTSIDE RECORDS SUMMARY | 2024-12-15 11:15 | XMS_ITS | Encounter Summary ---
Author Organization [facility] Address [address] [place] [phone] Phone Care Team Providers Care Radiologic Technologist Name Role Phone Jaky Ely MD Primary Care Provider [phone] Encounter Details Date Type Department Care Team (Late st Contact Info) Description 11/30/2011 Documentation [facility] [place] [address] [place], [place] [phone] Family Medicine, Physician [address] [place], [place] [address] Social History Tobacco Use Types Packs/Day Years [...] on filedocumented in this encounter Care Teams Radiologic Technologist Relationship Specialty Start Date End Date Jaky Ely MD [address] [place] [address] [place] [id number] PCP - General 11/30/16 documented as of this encounter
--- OUTSIDE RECORDS SUMMARY | 2024-12-15 11:15 | XMS_ITS | Encounter Summary ---
Author Organization [facility] Address [address] [place] [phone] Phone Care Team Providers Care Geographical Historian Name Role Phone Jaky Ely MD Primary Care Provider [phone] Encounter Details Date Type Department Care Team (Late st Contact Info) Description 12/06/2016 Conversion Encounter [facility] [place] [address] [place] [address] Social History Tobacco Use Types Packs/Day Years [...] on filedocumented in this encounter Care Teams Geographical Historian Relationship Specialty Start Date End Date Jaky Ely MD [address] [place] [address] PCP - General 11/30/16 documented as of this encounter
--- OUTSIDE RECORDS SUMMARY | 2024-12-15 11:15 | XMS_ITS | Clinical Summary ---
Author Organization [facility] Address [address] [place] [phone] Phone Care Team Providers Care Lmsw Name Role Phone Jaky Ely MD Primary Care Provider [phone] Immunizations Immunization Administration Dates Next Due DTP 06/19/1994, 1,1989,10/19,1989 HPV, Quadrivalent 11/12/2007 Hep B, ped/adol 04/27/2002,11/04/2001,09/19/2001 Hib (PRP-T) 09/19/1990 IPV 06/19/1994, 1,1989,08/19 MMR 06/12/1994,09/19/1990 Meningococcal Conj (Menactra) MCV4P 11/12/2007 Td (adult) (MBL), 2 Lf tetan us toxoid, PF, adsorbed 09/19/2001 Tdap 11/12/2007 Varicella 11/12/2007,01/05/1998 Family History Relation Name Status Comments Brother Alive Brother: Alive and well Father Father: Sudden /[place] under age 55, Maternal Grandmother Materna l [...] 11/11/2017 11/12/2007, 09/19/2001, 06/19/1994, Additional history exists COVID-19 Vaccine (2023- season) 2023 Influenza Vaccines (#1) 2024 HIB Vaccines Completed 09/19/1990 MMR Vaccines Completed [...] age to complete this topic Care Teams Lmsw Relationship Specialty Start Date End Date Jaky Ely MD [address] [facility] [place] [id number] PCP - General 11/30/16
== END 2024-12-15 11:41 | disposition home or self-care (01) ==
PROVIDERS: Visit Provider Physician Assistant
DX: M54.12 Radiculopathy, cervical region (principal)

== ENCOUNTER → 2024-12-15 10:30 | Outpatient (BNVA) | payer OTHER, SELFPAY | PROVIDERS: Visit Provider Physician Assistant | DX: M54.12 Radiculopathy, cervical region (principal); M25.50 Pain in unspecified joint | CPT/HCPCS: 99212 ==

== ENCOUNTER 2025-01-11 13:55 | Outpatient (REF) | payer OTHER, SELFPAY ==
[2025-01-12 15:37] LABS: Anti Nuclear Antibody Screen NEGATIVE (NEGATIVE)
== END 2025-01-11 13:56 | disposition home or self-care (01) ==
LOC: HO.LAB 13:55
DX: Z01.84 Encounter for antibody response examination (principal); M25.60 Stiffness of unspecified joint, not elsewhere classified
CPT/HCPCS: 36415; 85652; 86038; 86140; 86200; 86431